=== PATIENT | female | born 1975 | race Hispanic/Latino ===

== ENCOUNTER → 2018-10-24 | Outpatient (CLI) | payer OTHER ==
[~2018-10-24] MED LIST: ONDA4TAB4 PO
[2018-10-24 08:40] LABS: BASOPHILS % (AUTO) 0.9 % (0.0-5.0); EOSINOPHILS % (AUTO) 1.1 % (0.0-8.0); HEMATOCRIT 33.9 % (36-48); LYMPHOCYTES % (AUTO) 40.3 % (21.0-51.0); MEAN CORPUSCULAR HEMOGLOBIN 24.9 pg (27.0-33.0); MEAN CORPUSCULAR HGB CONC 32.3 g/dL (32.0-36.0); MEAN CORPUSCULAR VOLUME 77.1 fL (79-99); MONOCYTES % (AUTO) 6.8 % (3.0-13.0); NEUTROPHILS % (AUTO) 50.9 % (40.0-77.0); PLATELET COUNT (AUTO) 333 K/uL (130-400); RED CELL DISTRIBUTION WIDTH 15.5 % (11.0-15.5)
[2018-10-24 09:01] LABS: ALBUMIN 3.3 g/dL (3.5-5.0); BILIRUBIN,TOTAL 0.4 mg/dL (0.2-1.0); CREATININE 0.8 mg/dL (0.5-1.5); POTASSIUM 4.3 mmol/L (3.5-5.1)
== END | disposition home or self-care (01) ==
LOC: LAB 08:21
PROVIDERS: ATTEND Dermatology
DX: Z79.899 Other long term (current) drug therapy (principal)
CPT/HCPCS: 36415; 80053; 85025; 86038

== ENCOUNTER → 2020-05-23 | Outpatient (CLI) | payer OTHER ==
[2020-05-23 09:42] LABS: BASOPHILS % (AUTO) 1.1 % (0.0-5.0); EOSINOPHILS % (AUTO) 0.9 % (0.0-8.0); HEMATOCRIT 38.9 % (36-48); LYMPHOCYTES % (AUTO) 38.9 % (21.0-51.0); MEAN CORPUSCULAR HEMOGLOBIN 25.6 pg (27.0-33.0); MEAN CORPUSCULAR HGB CONC 31.9 g/dL (32.0-36.0); MEAN CORPUSCULAR VOLUME 80.2 fL (79-99); MONOCYTES % (AUTO) 7.3 % (3.0-13.0); NEUTROPHILS % (AUTO) 51.6 % (40.0-77.0); PLATELET COUNT (AUTO) 337 K/uL (130-400); RED BLOOD CELL COUNT(AUTO) 4.85 MIL/uL (4.00-5.50); WHITE BLOOD COUNT (AUTO) 6.4 K/uL (4.8-10.8)
[2020-05-23 09:50] LABS: APPEARANCE,URINE Clear (CLEAR); BILIRUBIN,URINE Negative (NEGATIVE); COLOR,URINE Yellow (YELLOW); GLUCOSE, URINE (UA) Negative (NEGATIVE); KETONES,URINE Negative (NEGATIVE); LEUKOCYTE ESTERASE ,URINE Trace (NEGATIVE); NITRATE,URINE Negative (NEGATIVE); OCCULT BLOOD,URINE Negative (NEGATIVE); PH,URINE 5.5 (5.0-8.0); PROTEIN,URINE Negative (NEGATIVE); UROBILINOGEN,URINE 0.2 mg/dL (0.2-1.0)
[2020-05-23 09:50] LABS: HEMOGLOBIN A1C 5.6 % (4.0-6.0)
[2020-05-23 09:52] LABS: BACTERIA,URINE Rare /HPF (None Seen); RBC,URINE 0-1 /HPF (0-1); SQUAMOUS EPITHELIAL CELL,UR Few /HPF (0-2); WBC,URINE 0-1 /HPF (0-1)
[2020-05-23 09:58] LABS: % IRON SATURATION 10.3 % (22-44)
[2020-05-23 10:06] LABS: ALBUMIN 3.9 g/dL (3.5-5.0); BILIRUBIN,TOTAL 0.4 mg/dL (0.2-1.0); CREATININE 0.7 mg/dL (0.5-1.5); POTASSIUM 3.7 mmol/L (3.5-5.1); THYROID STIMULATING HORMONE 2.06 uIU/mL (0.36-3.74); TOTAL PROTEIN, SERUM 7.5 g/dL (6.0-8.3)
[2020-05-23 10:47] LABS: ERYTHROCYTE SEDIMENTATION RATE 6 MM/HR (0-20)
== END | disposition home or self-care (01) ==
LOC: LAB 05-22 15:52
PROVIDERS: ATTEND Nurse Practitioner Family
DX: D50.9 Iron deficiency anemia, unspecified (principal); E55.9 Vitamin D deficiency, unspecified; R53.82 Chronic fatigue, unspecified; R73.09 Other abnormal glucose
CPT/HCPCS: 36415; 80053; 80061; 81001; 82306; 82533; 82627; 82670; 82677; 82679; 83001; 83002; 83036; 83540; 83550; 83789; 84144; 84255; 84270; 84402; 84403; 84439; 84443; 84479; 84481; 84482; 84630; 85025; 85651; 86376; 86800

== ENCOUNTER 2020-08-10 15:19 | Emergency (ER) | payer OTHER ==
[2020-08-10 15:45] LABS: APPEARANCE,URINE Cloudy (CLEAR); BILIRUBIN,URINE Negative (NEGATIVE); COLOR,URINE Yellow (YELLOW); GLUCOSE, URINE (UA) Negative (NEGATIVE); KETONES,URINE Trace mg/dL (NEGATIVE); LEUKOCYTE ESTERASE ,URINE Small (NEGATIVE); NITRATE,URINE Negative (NEGATIVE); OCCULT BLOOD,URINE Negative (NEGATIVE); PROTEIN,URINE Negative (NEGATIVE)
[2020-08-10 15:47] LABS: HCG,QUAL RESULT NEGATIVE (NEGATIVE)
[2020-08-10 16:01] LABS: RBC,URINE 0-1 /HPF (0-1)
[2020-08-10 16:02] LABS: BACTERIA,URINE Few /HPF (None Seen); MUCUS,URINE Few LPF (None Seen); SQUAMOUS EPITHELIAL CELL,UR Moderate /HPF (0-2)
[2020-08-10] MEDS ORDERED: ORPHENADRINE CITRATE 30 MG/ML ML ONE (17:27)
[2020-08-10] MEDS ORDERED: DEXAMETHASONE SOD PHOSPHATE 4 MG/ML 1ML VIAL ONE (17:27)
[2020-08-10] MEDS ORDERED: KETOROLAC TROMETHAMINE 30MG/ML ONE (17:27)
[2020-08-10] MEDS ORDERED: FENTANYL CITRATE PF 50 MCG/1 ML 2ML VIAL ONE (17:28)
== END 2020-08-10 18:54 | disposition home or self-care (01) ==
LOC: EDH 15:19
DX: M54.41 Lumbago with sciatica, right side (principal); Z88.2 Allergy status to sulfonamides; Z90.49 Acquired absence of other specified parts of digestive tract
CPT/HCPCS: 81001; 81025; 96374; 96375; 99284; J1100; J1885; J2360; J3010

== ENCOUNTER 2020-09-17 08:41 | Day surgery (SDC) | payer OTHER ==
[2020-09-12 09:07] LABS: INR 1.01 (0.85-1.15)
[2020-09-12 09:08] LABS: PARTIAL THROMBOPLASTIN TIME 29.1 SEC (26.3-35.5)
[2020-09-17] VITALS (17 sets, daily range): BP systolic 125–147; BP diastolic 72–86
[~2020-09-17] VITALS: Ht 162.6 cm; Wt 62.2 kg
[2020-09-17] MEDS: CEFAZOLIN SODIUM 1 GM VIAL IVP ONE ×2 (07:57→11:00)
[~2020-09-17 08:41] MED LIST changes: +LACTATED RINGERS 1000ML 1,000 ML IV ONE
[2020-09-17] MEDS ORDERED: MAGN500C15 PO (09:06)
[2020-09-17] MEDS ORDERED: VITAMIN D PO (09:06)
[2020-09-17] MEDS ORDERED: OXYMETAZOLINE HCL SPRAY 15 ML BOTTLE ONE ×2 (09:36→12:24)
[2020-09-17] MEDS ORDERED: LIDOCAINE 1%-EPI 1:100,000 20 ML VIAL IJ ONE (09:36)
[2020-09-17] MEDS ORDERED: GENTAMICIN SULFATE 80 MG/2 ML VIAL ONE (09:37)
[2020-09-17] MEDS ORDERED: CEFAZOLIN SODIUM 1 GM VIAL ONE ×2 (09:37→14:43)
[2020-09-17] MEDS ORDERED: SUCCINYLCHOLINE CHLORIDE 20 MG/ML 10 ML VIAL ONE (10:08)
[2020-09-17] MEDS ORDERED: PROPOFOL 10 MG/ML 20ML VIAL IV ONE (10:08)
[2020-09-17] MEDS ORDERED: LIDOCAINE PF 2% 5ML ABBOJECT ONE (10:08)
[2020-09-17] MEDS ORDERED: FENTANYL CITRATE PF 50 MCG/1 ML 2ML VIAL ONE ×4 (10:09→16:21)
[2020-09-17] MEDS ORDERED: LIDOCAINE HCL MPF 1% 5ML VIAL ONE (10:09)
[2020-09-17] MEDS ORDERED: ROCURONIUM 10MG/1ML SYR 10 MG/ML ML ONE ×2 (10:09→15:39)
[2020-09-17] MEDS ORDERED: BACITRACIN 28.4 GM OINT TP ONE (10:45)
[2020-09-17] MEDS ORDERED: BUPIVACAINE/EPI/PF 0.5% 30ML VIAL IJ ONE (11:32)
[2020-09-17] MEDS ORDERED: KETOROLAC TROMETHAMINE 30MG/ML ONE (13:54)
[2020-09-17] MEDS ORDERED: MEPERIDINE-PF 25 MG/ML SYG ONE (14:57)
[2020-09-17] MEDS ORDERED: ONDANSETRON HCL 4 MG/2 ML VIAL ONE ×3 (14:58→17:21)
[2020-09-17] MEDS ORDERED: NA BORATE/BORIC AC/H2O/NACL 120 ML OPHTH IRRIG SOLN ONE (16:09)
[2020-09-17] MEDS ORDERED: NEOSTIGMINE 5MG/5ML SYR IV ONE (16:21)
[2020-09-17] MEDS ORDERED: METOCLOPRAMIDE 10 MG/2 ML VIAL ONE (16:49)
== END 2020-09-17 18:45 | disposition home or self-care (01) ==
LOC: DAH 08:41
PROVIDERS: ATTEND Plastic Surgery
DX: J34.89 Other specified disorders of nose and nasal sinuses (principal); Z20.822 Contact with and (suspected) exposure to COVID-19; Q00-Q99 Congenital malformations, deformations and chromosomal abnormalities; Q30.9 Congenital malformation of nose, unspecified; K21.9 Gastro-esophageal reflux disease without esophagitis; Z79.01 Long term (current) use of anticoagulants; Z90.49 Acquired absence of other specified parts of digestive tract; Z98.890 Other specified postprocedural states; Z82.49 Family history of ischemic heart disease and other diseases of the circulatory system; Z83.3 Family history of diabetes mellitus; Z79.899 Other long term (current) drug therapy
CPT/HCPCS: 30462; 30930; 36415; 40720; 64400; 84703; 85610; 85730; A4215; A4216; A4221; A4222; A4223 ×2; A4649 ×3; A4663; A6260; C9803; J0330; J0690 ×3; J1580; J1885; J2175; J2405 ×3; J2704; J2710; J2765; J3010 ×4; J3490 ×3; J7030; J7120; U0003; J2001

== ENCOUNTER → 2020-12-01 | Outpatient (CLI) | payer OTHER ==
[~2020-12-01] MED LIST changes: -LACTATED RINGERS 1000ML 1,000 ML IV ONE; +MAGN500C15 PO; -ONDA4TAB4 PO; +VITAMIN D PO
== END | disposition home or self-care (01) ==
LOC: LAB 09:26
PROVIDERS: ATTEND Internal Medicine Cardiovascular Disease
DX: Z20.822 Contact with and (suspected) exposure to COVID-19 (principal)
CPT/HCPCS: C9803; U0003

== ENCOUNTER → 2021-03-02 | Outpatient (CLI) | payer OTHER | END | disposition home or self-care (01) | LOC: RAH 16:41 | PROVIDERS: ATTEND Nurse Practitioner Family | DX: Z12.31 Encounter for screening mammogram for malignant neoplasm of breast (principal); Z00.01 Encounter for general adult medical examination with abnormal findings | CPT/HCPCS: 77067 ==

== ENCOUNTER 2021-04-02 17:41 | Emergency (ER) | payer OTHER ==
[~2021-04-02] VITALS: Ht 162.6 cm; Wt 64.4 kg
[2021-04-02 17:43] VITALS: BP 145/74
[2021-04-02] MEDS ORDERED: NAPR500T6 PO (18:26)
[2021-04-02] MEDS ORDERED: CYCL10 PO (18:26)
[2021-04-02] MEDS ORDERED: DIAZEPAM 5 MG TABLET PO ONE (18:30)
[2021-04-02] MEDS ORDERED: KETOROLAC 30MG VIAL (30MG/ML) IM ONE (18:30)
[2021-04-02] MEDS ORDERED: DEXAMETHASONE SOD PHOSPHATE 4 MG/ML 1ML VIAL IM SCH (18:30)
== END 2021-04-02 19:20 | disposition home or self-care (01) ==
LOC: EDH 17:41
DX: M54.41 Lumbago with sciatica, right side (principal); Z88.2 Allergy status to sulfonamides; Z79.1 Long term (current) use of non-steroidal anti-inflammatories (NSAID); Z79.52 Long term (current) use of systemic steroids
CPT/HCPCS: 96372 ×2; 99284; J1100; J1885

== ENCOUNTER → 2021-04-24 | Outpatient (CLI) | payer OTHER ==
[~2021-04-24] MED LIST changes: +CYCL10 PO; +IOHEXOL 350 MG/ML 100ML INFUS..BTL IV ONE; +NAPR500T6 PO
== END | disposition home or self-care (01) ==
LOC: RAH 15:19
PROVIDERS: ATTEND Internal Medicine Hematology & Oncology
DX: C50.811 Malignant neoplasm of overlapping sites of right female breast (principal)
CPT/HCPCS: 71270; 74170; Q9967

== ENCOUNTER 2021-05-20 07:14 | Day surgery (SDC) | payer OTHER ==
[2021-05-19 09:35] LABS: EOSINOPHILS % (AUTO) 1.5 % (0.0-8.0); HEMATOCRIT 35.8 % (36-48); LYMPHOCYTES % (AUTO) 38.9 % (21.0-51.0); MEAN CORPUSCULAR HEMOGLOBIN 22.4 pg (27.0-33.0); MEAN CORPUSCULAR HGB CONC 30.7 g/dL (32.0-36.0); MEAN CORPUSCULAR VOLUME 73.1 fL (79-99); MONOCYTES % (AUTO) 6.9 % (3.0-13.0); NEUTROPHILS % (AUTO) 51.4 % (40.0-77.0); PLATELET COUNT (AUTO) 391 K/uL (130-400); RED CELL DISTRIBUTION WIDTH 18.8 % (11.0-15.5); WHITE BLOOD COUNT (AUTO) 6.1 K/uL (4.8-10.8)
[2021-05-19 09:49] LABS: ALBUMIN 3.8 g/dL (3.5-5.0); BILIRUBIN,TOTAL 0.3 mg/dL (0.2-1.0); CREATININE 0.7 mg/dL (0.5-1.5); POTASSIUM 4.3 mmol/L (3.5-5.1); TOTAL PROTEIN, SERUM 7.6 g/dL (6.0-8.3)
[2021-05-19 09:53] LABS: PROTHROMBIN TIME 10.9 SEC (9.6-11.6)
[2021-05-19 09:54] LABS: PARTIAL THROMBOPLASTIN TIME 29.6 SEC (26.3-35.5)
[2021-05-19 15:35] VITALS: BP 139/85
[~2021-05-20] VITALS: Ht 162.6 cm; Wt 63.5 kg
[2021-05-20] VITALS (18 sets, daily range): BP systolic 16–145; BP diastolic 71–87
[~2021-05-20 07:14] MED LIST changes: +CYCL-309 PO; -CYCL10 PO; +INTEGRA PO; -IOHEXOL 350 MG/ML 100ML INFUS..BTL IV ONE; +LIDOCAINE/PRILOCAINE CREAM 5GM TUBE TP ONE; -MAGN500C15 PO; +NAPR-1023 PO; -NAPR500T6 PO; -VITAMIN D PO
[2021-05-20] MEDS ORDERED: LACTATED RINGERS 1000ML 1,000 ML IV ONE (07:18)
[2021-05-20] MEDS ORDERED: PROPOFOL 10 MG/ML 20ML VIAL IV ONE (07:21)
[2021-05-20] MEDS ORDERED: ROCURONIUM 10MG/1ML SYR 10 MG/ML ML ONE (07:21)
[2021-05-20] MEDS ORDERED: SUCCINYLCHOLINE CHLORIDE 20 MG/ML 10 ML VIAL ONE (07:21)
[2021-05-20] MEDS ORDERED: LIDOCAINE PF 100MG/5ML (2%) SYRINGE 5ML ONE ×2 (07:21→12:17)
[2021-05-20] MEDS ORDERED: FENTANYL CITRATE PF 50 MCG/1 ML 2ML VIAL ONE ×3 (07:23→11:05)
[2021-05-20] MEDS ORDERED: METHYLENE BLUE 5 MG/ML AMP ONE (07:47)
[2021-05-20] MEDS ORDERED: CEFAZOLIN SODIUM 1 GM VIAL ONE (07:47)
[2021-05-20] MEDS ORDERED: GENTAMICIN SULFATE 80 MG/2 ML VIAL ONE (07:47)
[2021-05-20] MEDS: CEFAZOLIN SODIUM 1 GM VIAL IVP ONE ×2 (08:07→08:58)
[2021-05-20] MEDS ORDERED: MIDAZOLAM HCL 1 MG/ML 2ML VIAL ONE (08:24)
[2021-05-20] MEDS ORDERED: BUPIVACAINE/PF 0.25% 30ML VIAL IJ ONE (11:30)
[2021-05-20] MEDS ORDERED: BUPIVACAINE/PF 0.5% 30ML VIAL ONE (11:31)
[2021-05-20] MEDS ORDERED: BUPIVACAINE/EPI/PF 0.5% 30ML VIAL IJ ONE (11:35)
[2021-05-20] MEDS ORDERED: NEOSTIGMINE 5MG/5ML SYR IV ONE (11:45)
[2021-05-20] MEDS ORDERED: GLYCOPYRROLATE 1 MG/5 ML SYRINGE ONE (11:45)
[2021-05-20] MEDS ORDERED: DEXAMETHASONE SOD PHOSPHATE 4 MG/ML 1ML VIAL ONE (12:19)
[2021-05-20] MEDS ORDERED: ONDANSETRON 4MG INJ ONE ×2 (12:19→13:46)
[2021-05-20] MEDS ORDERED: KETOROLAC 30MG VIAL (30MG/ML) ONE (12:19)
[2021-05-20] MEDS ORDERED: MEPERIDINE-PF 25 MG/ML SYG ONE (12:39)
[2021-06-03] MEDS ORDERED: TRAM50TA4 PO (13:23)
== END 2021-05-20 15:46 | disposition home or self-care (01) ==
LOC: DAH 07:14
PROVIDERS: ATTEND Student in an Organized Health Care Education/Training Program
DX: C50.111 Malignant neoplasm of central portion of right female breast (principal); Z20.822 Contact with and (suspected) exposure to COVID-19; E78.5 Hyperlipidemia, unspecified; Z79.899 Other long term (current) drug therapy; Z79.01 Long term (current) use of anticoagulants; Z90.49 Acquired absence of other specified parts of digestive tract; Z98.890 Other specified postprocedural states; Z82.49 Family history of ischemic heart disease and other diseases of the circulatory system; Z83.3 Family history of diabetes mellitus
CPT/HCPCS: 19303; 36415; 38525; 71045; 78195; 80053; 85025; 85610; 85730; 87635; 93005; A4215; A4221; A4222; A4223; A4344; A4600; A4649 ×2; A4663; A4930; A6260; A9272; A9541; C1762; C1789; C9803; J0330; J0690 ×2; J1100; J1580; J1885; J2001 ×2; J2175; J2250; J2405 ×2; J2704; J2710; J3010 ×3; J3490 ×4; J7030; J7120; Q9968

== ENCOUNTER 2021-06-08 07:49 | Day surgery (SDC) | payer OTHER ==
[2021-06-03 11:20] VITALS: BP 138/76
[2021-06-03 11:58] LABS: BASOPHILS % (AUTO) 1.2 % (0.0-5.0); HEMATOCRIT 32.7 % (36-48); LYMPHOCYTES % (AUTO) 27.7 % (21.0-51.0); MEAN CORPUSCULAR HEMOGLOBIN 22.2 pg (27.0-33.0); MEAN CORPUSCULAR HGB CONC 30.6 g/dL (32.0-36.0); MEAN CORPUSCULAR VOLUME 72.7 fL (79-99); MONOCYTES % (AUTO) 6.2 % (3.0-13.0); NEUTROPHILS % (AUTO) 61.5 % (40.0-77.0); PLATELET COUNT (AUTO) 416 K/uL (130-400); RED CELL DISTRIBUTION WIDTH 17.6 % (11.0-15.5); WHITE BLOOD COUNT (AUTO) 10.4 K/uL (4.8-10.8)
[2021-06-08] VITALS (16 sets, daily range): BP systolic 113–138; BP diastolic 63–86
[~2021-06-08] VITALS: Ht 162.6 cm; Wt 64.2 kg
[~2021-06-08 07:49] MED LIST changes: -CYCL-309 PO; -LIDOCAINE/PRILOCAINE CREAM 5GM TUBE TP ONE; -NAPR-1023 PO; +TRAM50TA4 PO
[2021-06-08] MEDS ORDERED: LACTATED RINGERS 1000ML 1,000 ML IV ONE (08:12)
[2021-06-08] MEDS ORDERED: SCOPOLAMINE HYDROBROMIDE 1 EACH ADH..PATCH TD ONE (08:16)
[2021-06-08] MEDS ORDERED: LIDOCAINE PF 100MG/5ML (2%) SYRINGE 5ML ONE (08:21)
[2021-06-08] MEDS ORDERED: MIDAZOLAM HCL 1 MG/ML 2ML VIAL ONE (08:22)
[2021-06-08] MEDS ORDERED: PROPOFOL 10 MG/ML 20ML VIAL IV ONE (08:22)
[2021-06-08] MEDS ORDERED: FENTANYL CITRATE PF 50 MCG/1 ML 2ML VIAL ONE ×2 (08:22→09:45)
[2021-06-08] MEDS ORDERED: BUPIVACAINE/PF 0.25% 10ML VIAL IJ ONE (08:26)
[2021-06-08] MEDS ORDERED: CEFAZOLIN SODIUM 1 GM VIAL ONE (08:53)
[2021-06-08] MEDS ORDERED: CEFAZOLIN SODIUM 1 GM VIAL IVP SCH (09:30)
[2021-06-19] MEDS ORDERED: NAPR-1023 PO (10:33)
[2021-06-19] MEDS ORDERED: PROM12.513 PO (10:33)
[2021-06-19] MEDS ORDERED: IRON1CAP32 PO (10:33)
[2021-06-19] MEDS ORDERED: META-25 PO (10:33)
== END 2021-06-08 11:40 | disposition home or self-care (01) ==
LOC: DAH 07:49
PROVIDERS: ATTEND Student in an Organized Health Care Education/Training Program
DX: C50.911 Malignant neoplasm of unspecified site of right female breast (principal); Z20.822 Contact with and (suspected) exposure to COVID-19; E78.5 Hyperlipidemia, unspecified; Z88.1 Allergy status to other antibiotic agents; Z90.49 Acquired absence of other specified parts of digestive tract; Z98.890 Other specified postprocedural states; Z83.3 Family history of diabetes mellitus; Z82.49 Family history of ischemic heart disease and other diseases of the circulatory system
CPT/HCPCS: 36415; 36561; 77001; 85025; 87635; A4215; A4216; A4221; A4222; A4223 ×3; A4606 ×2; A4663; A6207; A6260; A6402; C1788; C9803; G0168; J0690; J1644; J2001; J2250; J2704; J3010 ×2; J3490; J7120; 77002

== ENCOUNTER 2021-06-22 10:56 | Day surgery (SDC) | payer OTHER ==
[2021-06-18 09:27] LABS: BASOPHILS % (AUTO) 1.1 % (0.0-5.0); EOSINOPHILS % (AUTO) 6.4 % (0.0-8.0); HEMATOCRIT 31.9 % (36-48); LYMPHOCYTES % (AUTO) 30.2 % (21.0-51.0); MEAN CORPUSCULAR HEMOGLOBIN 22.4 pg (27.0-33.0); MEAN CORPUSCULAR VOLUME 72.2 fL (79-99); MONOCYTES % (AUTO) 6.2 % (3.0-13.0); NEUTROPHILS % (AUTO) 55.8 % (40.0-77.0); PLATELET COUNT (AUTO) 414 K/uL (130-400); RED BLOOD CELL COUNT(AUTO) 4.42 MIL/uL (4.00-5.50); RED CELL DISTRIBUTION WIDTH 16.8 % (11.0-15.5); WHITE BLOOD COUNT (AUTO) 6.6 K/uL (4.8-10.8)
[2021-06-18 09:45] LABS: ALBUMIN 3.5 g/dL (3.5-5.0); BILIRUBIN,TOTAL 0.3 mg/dL (0.2-1.0); CREATININE 0.7 mg/dL (0.5-1.5); POTASSIUM 3.9 mmol/L (3.5-5.1); TOTAL PROTEIN, SERUM 7.5 g/dL (6.0-8.3)
[2021-06-19 09:35] VITALS: BP 137/77
[~2021-06-22] VITALS: Ht 162.6 cm; Wt 63.3 kg
[2021-06-22] VITALS (17 sets, daily range): BP systolic 113–134; BP diastolic 58–83
[~2021-06-22 10:56] MED LIST changes: -INTEGRA PO; +IRON1CAP32 PO; +META-25 PO; +NAPR-1023 PO; +PROM12.513 PO
[2021-06-22] MEDS ORDERED: LACTATED RINGERS 1000ML 1,000 ML IV ONE (11:25)
[2021-06-22] MEDS ORDERED: DEXAMETHASONE SOD PHOSPHATE 10MG/ML 1ML VIAL ONE (11:54)
[2021-06-22] MEDS ORDERED: LIDOCAINE PF 100MG/5ML (2%) SYRINGE 5ML ONE (11:54)
[2021-06-22] MEDS ORDERED: MIDAZOLAM HCL 1 MG/ML 2ML VIAL ONE (11:54)
[2021-06-22] MEDS ORDERED: SUCCINYLCHOLINE CHLORIDE 20 MG/ML 10 ML VIAL ONE (11:54)
[2021-06-22] MEDS ORDERED: PROPOFOL 10 MG/ML 20ML VIAL IV ONE (11:55)
[2021-06-22] MEDS ORDERED: GLYCOPYRROLATE 1 MG/5 ML SYRINGE ONE (11:55)
[2021-06-22] MEDS ORDERED: ROCURONIUM 10MG/1ML SYR 10 MG/ML ML ONE (11:55)
[2021-06-22] MEDS ORDERED: ONDANSETRON 4MG INJ ONE (11:55)
[2021-06-22] MEDS ORDERED: FENTANYL CITRATE PF 50 MCG/1 ML 2ML VIAL ONE ×2 (11:55→13:04)
[2021-06-22] MEDS ORDERED: NEOSTIGMINE 5MG/5ML SYR IV ONE (11:55)
[2021-06-22] MEDS ORDERED: METOCLOPRAMIDE 10 MG/2 ML VIAL ONE (12:02)
[2021-06-22] MEDS ORDERED: CEFAZOLIN SODIUM 1 GM VIAL ONE (12:19)
[2021-06-22] MEDS ORDERED: VANCOMYCIN 1G VIAL ONE (12:25)
[2021-06-22] MEDS ORDERED: LIDOCAINE HCL 1% 20 ML VIAL ONE (12:25)
[2021-06-22] MEDS ORDERED: GENTAMICIN SULFATE 80 MG/2 ML VIAL ONE (12:25)
[2021-06-22] MEDS ORDERED: LIDOCAINE 1%-EPI 1:100,000 20 ML VIAL IJ ONE (13:05)
[2021-06-22] MEDS ORDERED: PHENYLEPHRINE HCL 10 MG/ML 1ML VIAL IV ONE (13:14)
[2021-06-22] MEDS ORDERED: BUPIVACAINE/EPI/PF 0.5% 30ML VIAL IJ ONE (13:24)
[2021-06-22] MEDS ORDERED: MEPERIDINE-PF 25 MG/ML SYG ONE (13:48)
== END 2021-06-22 16:10 | disposition home or self-care (01) ==
LOC: DAH 10:56
PROVIDERS: ATTEND Plastic Surgery
DX: S21.001A Unspecified open wound of right breast, initial encounter (principal); Z90.10 Acquired absence of unspecified breast and nipple; C50.111 Malignant neoplasm of central portion of right female breast; X58.XXXA Exposure to other specified factors, initial encounter; Y93.89 Activity, other specified; Y92.89 Other specified places as the place of occurrence of the external cause; Y99.8 Other external cause status
CPT/HCPCS: 14001; 15002; 36415; 80053; 85025; 87070; 87076; 87077 ×2; 87186 ×2; 87205; 87635; A4215; A4221; A4222; A4223; A4510; A4600; A4606; A4649; A4663; A6223; A6260; C1763; C9803; J0330; J0690; J1100; J1580; J2001; J2175; J2250; J2370; J2405; J2704; J2710; J2765; J3010 ×2; J3370; J3490 ×3; J7120

== ENCOUNTER → 2021-12-31 | Outpatient (CLI) | payer OTHER | END | disposition home or self-care (01) | LOC: LAB 08:56 | PROVIDERS: ATTEND Hospitalist | DX: Z20.822 Contact with and (suspected) exposure to COVID-19 (principal) | CPT/HCPCS: 87635; C9803 ==

== ENCOUNTER → 2022-03-05 | Outpatient (CLI) | payer OTHER | END | disposition home or self-care (01) | LOC: RAH 14:53 | PROVIDERS: ATTEND Internal Medicine Hematology & Oncology | DX: C50.811 Malignant neoplasm of overlapping sites of right female breast (principal); Z85.3 Personal history of malignant neoplasm of breast | CPT/HCPCS: 77065 ==

== ENCOUNTER 2022-05-19 07:06 | Day surgery (SDC) | payer OTHER ==
[2022-05-17] MEDS: CEFAZOLIN SODIUM 1 GM VIAL IVPB SCH (07:00)
[2022-05-17 09:42] LABS: BASOPHILS % (AUTO) 0.8 % (0.0-5.0); EOSINOPHILS % (AUTO) 2.7 % (0.0-8.0); HEMATOCRIT 37.3 % (36-48); LYMPHOCYTES % (AUTO) 37.5 % (21.0-51.0); MEAN CORPUSCULAR HEMOGLOBIN 27.5 pg (27.0-33.0); MEAN CORPUSCULAR VOLUME 83.3 fL (79-99); MONOCYTES % (AUTO) 6.6 % (3.0-13.0); NEUTROPHILS % (AUTO) 52.1 % (40.0-77.0); PLATELET COUNT (AUTO) 262 K/uL (130-400); RED BLOOD CELL COUNT(AUTO) 4.48 MIL/uL (4.00-5.50); RED CELL DISTRIBUTION WIDTH 14.3 % (11.0-15.5)
[2022-05-17 10:01] LABS: ALBUMIN 3.4 g/dL (3.5-5.0); CREATININE 0.6 mg/dL (0.5-1.5); POTASSIUM 4.2 mmol/L (3.5-5.1)
[2022-05-17 10:26] LABS: INR 0.96 (0.85-1.15); PROTHROMBIN TIME 10.5 SEC (9.6-11.6)
[2022-05-17 10:27] LABS: PARTIAL THROMBOPLASTIN TIME 28.2 SEC (26.3-35.5)
[2022-05-18 10:23] VITALS: BP 143/79
[2022-05-19] VITALS (17 sets, daily range): BP systolic 114–146; BP diastolic 67–89
[~2022-05-19] VITALS: Ht 162.6 cm; Wt 63.5 kg
[~2022-05-19 07:06] MED LIST changes: +CEFAZOLIN SODIUM 1 GM VIAL ONE; +GENTAMICIN SULFATE 80 MG/2 ML VIAL ONE; -IRON1CAP32 PO; -META-25 PO; +METHYLENE BLUE 5 MG/ML AMP ONE; -NAPR-1023 PO; -PROM12.513 PO; +TAMO20TA4 PO; -TRAM50TA4 PO
[2022-05-19] MEDS ORDERED: MIDAZOLAM HCL 1 MG/ML 2ML VIAL ONE (07:17)
[2022-05-19] MEDS ORDERED: PHENYLEPHRINE HCL 10 MG/ML 1ML VIAL IV ONE (07:17)
[2022-05-19] MEDS ORDERED: ONDANSETRON 4MG INJ ONE ×2 (07:17→10:21)
[2022-05-19] MEDS ORDERED: PROPOFOL 10 MG/ML 20ML VIAL IV ONE (07:18)
[2022-05-19] MEDS ORDERED: KETOROLAC 30MG VIAL (30MG/ML) ONE (07:18)
[2022-05-19] MEDS ORDERED: ROCURONIUM 10MG/1ML SYR 10 MG/ML ML ONE (07:18)
[2022-05-19] MEDS ORDERED: LACTATED RINGERS 1000ML 1,000 ML IV ONE (07:19)
[2022-05-19] MEDS ORDERED: FENTANYL CITRATE PF 50 MCG/1 ML 2ML VIAL ONE (07:19)
[2022-05-19] MEDS ORDERED: LIDOCAINE 1%-EPI 1:100,000 20 ML VIAL IJ SCH (07:30)
[2022-05-19] MEDS: CEFAZOLIN SODIUM 1 GM VIAL IVPB SCH (08:20)
[2022-05-19] MEDS ORDERED: DEXAMETHASONE SOD PHOSPHATE 4 MG/ML 1ML VIAL ONE (09:10)
[2022-05-19] MEDS ORDERED: BUPIVACAINE LIPOSOME/PF 266 MG/20 ML ML IV SCH (09:30)
[2022-05-19] MEDS ORDERED: MEPERIDINE-PF 25 MG/ML SYG ONE (10:21)
== END 2022-05-19 11:43 | disposition home or self-care (01) ==
LOC: DAH 07:06
PROVIDERS: ATTEND Plastic Surgery
DX: N64.89 Other specified disorders of breast (principal); Z20.822 Contact with and (suspected) exposure to COVID-19; Z79.01 Long term (current) use of anticoagulants; Z79.899 Other long term (current) drug therapy; Z90.11 Acquired absence of right breast and nipple; Z88.2 Allergy status to sulfonamides; Z82.49 Family history of ischemic heart disease and other diseases of the circulatory system; Z83.3 Family history of diabetes mellitus; Z98.890 Other specified postprocedural states; Z90.49 Acquired absence of other specified parts of digestive tract; Z90.10 Acquired absence of unspecified breast and nipple; Z85.3 Personal history of malignant neoplasm of breast
CPT/HCPCS: 80053; 84703; 85025; 85610; 85730; 87426; 36415; 71045; 93005; 19357; A4663; J7030; J7120 ×2; J3010; J0690 ×3; J1580 ×4; J2250; J2704; J2405 ×2; Q9968; J1885; J2175; J2370; C9290; A6446; A4649; G0168; C1789; A4215; A4223; A4222; A4221; A4600; J1100; J3490

== ENCOUNTER → 2022-09-23 | Outpatient (CLI) | payer OTHER ==
[~2022-09-23] MED LIST changes: -CEFAZOLIN SODIUM 1 GM VIAL ONE; +ESOM40CA PO; -GENTAMICIN SULFATE 80 MG/2 ML VIAL ONE; +IOHEXOL 350 MG/ML 100ML INFUS..BTL IV ONE; -METHYLENE BLUE 5 MG/ML AMP ONE; +ONDA4TAB10 PO
== END | disposition home or self-care (01) ==
LOC: RAH 10:06
PROVIDERS: ATTEND Internal Medicine Hematology & Oncology
DX: C50.811 Malignant neoplasm of overlapping sites of right female breast (principal); Z90.49 Acquired absence of other specified parts of digestive tract
CPT/HCPCS: 74178; Q9967

== ENCOUNTER 2022-09-24 17:02 | Emergency (ER) | payer OTHER ==
[~2022-09-24] VITALS: Ht 162.6 cm; Wt 68.0 kg
[~2022-09-24 17:02] MED LIST changes: -ESOM40CA PO; -IOHEXOL 350 MG/ML 100ML INFUS..BTL IV ONE; -ONDA4TAB10 PO
[2022-09-24] MEDS ORDERED: LACTATED RINGERS 1000ML 1,000 ML IV ONE (17:30)
[2022-09-24] MEDS ORDERED: ONDANSETRON 4MG INJ IVP ONE (17:30)
[2022-09-24 17:49] LABS: BASOPHILS % (AUTO) 0.7 % (0.0-5.0); EOSINOPHILS % (AUTO) 2.5 % (0.0-8.0); HEMATOCRIT 38.8 % (36-48); LYMPHOCYTES % (AUTO) 42.4 % (21.0-51.0); MEAN CORPUSCULAR HEMOGLOBIN 28.8 pg (27.0-33.0); MEAN CORPUSCULAR HGB CONC 33.8 g/dL (32.0-36.0); MEAN CORPUSCULAR VOLUME 85.3 fL (79-99); MONOCYTES % (AUTO) 7.9 % (3.0-13.0); NEUTROPHILS % (AUTO) 46.1 % (40.0-77.0); PLATELET COUNT (AUTO) 316 K/uL (130-400); RED BLOOD CELL COUNT(AUTO) 4.55 MIL/uL (4.00-5.50); RED CELL DISTRIBUTION WIDTH 13.1 % (11.0-15.5); WHITE BLOOD COUNT (AUTO) 6.7 K/uL (4.8-10.8)
[2022-09-24 17:56] LABS: CREATININE 0.7 mg/dL (0.5-1.5); POTASSIUM 3.7 mmol/L (3.5-5.1)
[2022-09-24 18:05] LABS: ALBUMIN 3.4 g/dL (3.5-5.0); TOTAL PROTEIN, SERUM 7.1 g/dL (6.0-8.3)
[2022-09-24] MEDS ORDERED: ONDA4TAB10 PO (18:11)
[2022-09-24] MEDS ORDERED: ESOM40CA PO (18:11)
[2022-09-24 18:12] LABS: APPEARANCE,URINE CLOUDY (CLEAR); BILIRUBIN,URINE NEGATIVE (NEGATIVE); COLOR,URINE LIGHT-YELLOW (YELLOW); GLUCOSE, URINE (UA) NEGATIVE (NEGATIVE); KETONES,URINE NEGATIVE (NEGATIVE); LEUKOCYTE ESTERASE ,URINE NEGATIVE Leu/uL (NEGATIVE); NITRATE,URINE NEGATIVE (NEGATIVE); OCCULT BLOOD,URINE NEGATIVE (NEGATIVE); PH,URINE 7.5 (5.0-8.0); PROTEIN,URINE NEGATIVE (NEGATIVE); UROBILINOGEN,URINE 0.2 mg/dL (0.2-1.0)
[2022-09-24 18:17] LABS: BACTERIA,URINE RARE /HPF (None Seen); MUCUS,URINE RARE LPF (None Seen); SQUAMOUS EPITHELIAL CELL,UR FEW /HPF (0-2); WBC,URINE 0-1 /HPF (0-1); YEAST,URINE BUDDING FEW /HPF (None Seen)
[2022-09-24 18:26] VITALS: BP 126/75
== END 2022-09-24 18:37 | disposition home or self-care (01) ==
LOC: EDH 17:02
DX: R10.9 Unspecified abdominal pain (principal); R11.2 Nausea with vomiting, unspecified; M54.89 Other dorsalgia; Z88.2 Allergy status to sulfonamides; Z85.3 Personal history of malignant neoplasm of breast; Z90.49 Acquired absence of other specified parts of digestive tract
CPT/HCPCS: 99283; 96374; 96361; 84484; 80053; 83690; 85025; 81001; 36415; J7120; J2405

== ENCOUNTER 2022-10-20 06:37 | Day surgery (SDC) | payer OTHER ==
[2022-10-14 09:13] LABS: BASOPHILS % (AUTO) 0.9 % (0.0-5.0); EOSINOPHILS % (AUTO) 2.8 % (0.0-8.0); HEMATOCRIT 39.8 % (36-48); LYMPHOCYTES % (AUTO) 42.9 % (21.0-51.0); MEAN CORPUSCULAR HEMOGLOBIN 28.4 pg (27.0-33.0); MEAN CORPUSCULAR HGB CONC 32.7 g/dL (32.0-36.0); MEAN CORPUSCULAR VOLUME 87.1 fL (79-99); NEUTROPHILS % (AUTO) 46.9 % (40.0-77.0); PLATELET COUNT (AUTO) 281 K/uL (130-400); RED BLOOD CELL COUNT(AUTO) 4.57 MIL/uL (4.00-5.50); RED CELL DISTRIBUTION WIDTH 12.9 % (11.0-15.5); WHITE BLOOD COUNT (AUTO) 5.7 K/uL (4.8-10.8)
[2022-10-14 09:25] VITALS: BP 133/71
[2022-10-14 09:37] LABS: ALBUMIN 3.4 g/dL (3.5-5.0); CREATININE 0.7 mg/dL (0.5-1.5); POTASSIUM 3.8 mmol/L (3.5-5.1); TOTAL PROTEIN, SERUM 7.1 g/dL (6.0-8.3)
[2022-10-14 09:54] LABS: INR 0.94 (0.85-1.15); PROTHROMBIN TIME 10.3 SEC (9.6-11.6)
[2022-10-14 09:55] LABS: PARTIAL THROMBOPLASTIN TIME 28.2 SEC (26.3-35.5)
[~2022-10-20] VITALS: Ht 162.6 cm; Wt 67.8 kg
[2022-10-20] VITALS (17 sets, daily range): BP systolic 123–133; BP diastolic 73–85
[~2022-10-20 06:37] MED LIST changes: +CEFAZOLIN SODIUM 1 GM VIAL IVPB SCH; +ONDA4TAB10 PO
[2022-10-20] MEDS ORDERED: LACTATED RINGERS 1000ML 1,000 ML IV ONE (07:16)
[2022-10-20] MEDS ORDERED: CEFAZOLIN SODIUM 1 GM VIAL ONE (07:34)
[2022-10-20] MEDS ORDERED: BUPIVACAINE/PF 0.5% 30ML VIAL ONE (07:35)
[2022-10-20] MEDS ORDERED: KETOROLAC 30MG VIAL (30MG/ML) ONE (07:35)
[2022-10-20] MEDS ORDERED: FAMOTIDINE 20MG VIAL IV ONE (07:35)
[2022-10-20] MEDS ORDERED: HYDROMORPHONE 1 MG INJ ONE (07:35)
[2022-10-20] MEDS ORDERED: LIDOCAINE 1%-EPI 1:100,000 20 ML VIAL IJ ONE (07:36)
[2022-10-20] MEDS ORDERED: GENTAMICIN SULFATE 80 MG/2 ML VIAL ONE (07:36)
[2022-10-20] MEDS ORDERED: METHYLENE BLUE 5 MG/ML AMP ONE (07:36)
[2022-10-20] MEDS ORDERED: MIDAZOLAM HCL 1 MG/ML 2ML VIAL ONE (07:40)
[2022-10-20] MEDS ORDERED: PROPOFOL 10 MG/ML 20ML VIAL IV ONE (07:40)
[2022-10-20] MEDS ORDERED: LIDOCAINE PF 100MG/5ML (2%) SYRINGE 5ML ONE (07:40)
[2022-10-20] MEDS ORDERED: ROCURONIUM 10MG/1ML SYR 10 MG/ML ML ONE (07:40)
[2022-10-20] MEDS ORDERED: GLYCOPYRROLATE 1 MG/5 ML SYRINGE ONE (07:40)
[2022-10-20] MEDS ORDERED: FENTANYL CITRATE PF 50 MCG/1 ML 5ML AMP IV ONE (07:40)
[2022-10-20] MEDS ORDERED: PHENYLEPHRINE HCL 10 MG/ML 1ML VIAL IV ONE (07:41)
[2022-10-20] MEDS ORDERED: GENTAMICIN SULFATE 80 MG/2 ML VIAL IM ONE (08:49)
[2022-10-20] MEDS ORDERED: CEFAZOLIN SODIUM 1 GM VIAL IVPB ONE (08:51)
[2022-10-20] MEDS ORDERED: LIDOCAINE 2%-EPI 1:200,000 20 ML VIAL IJ ONE (08:52)
[2022-10-20] MEDS ORDERED: ONDANSETRON 4MG INJ ONE (10:01)
[2022-10-20] MEDS ORDERED: NEOSTIGMINE 5MG/5ML SYR IV ONE (10:05)
[2022-10-20] MEDS ORDERED: FENTANYL CITRATE PF 50 MCG/1 ML 2ML VIAL ONE (11:04)
== END 2022-10-20 12:25 | disposition home or self-care (01) ==
LOC: DAH 06:37
PROVIDERS: ATTEND Plastic Surgery
DX: N64.89 Other specified disorders of breast (principal); Z20.822 Contact with and (suspected) exposure to COVID-19; K21.9 Gastro-esophageal reflux disease without esophagitis; J34.89 Other specified disorders of nose and nasal sinuses; Z85.3 Personal history of malignant neoplasm of breast; Z90.10 Acquired absence of unspecified breast and nipple; Z79.01 Long term (current) use of anticoagulants; Z79.899 Other long term (current) drug therapy; Z90.49 Acquired absence of other specified parts of digestive tract; Z98.51 Tubal ligation status; Z98.890 Other specified postprocedural states; Z88.2 Allergy status to sulfonamides; Z82.49 Family history of ischemic heart disease and other diseases of the circulatory system; Z83.3 Family history of diabetes mellitus
CPT/HCPCS: 80053; 84703; 85025; 85610; 85730; 87426; 36415; 93005; 19325; 11970; 81025; A6260; C1789; A4663; J7030; J7120 ×2; A4344; J3490 ×5; J3010 ×2; J0690 ×3; J1170; J2710; J2001; J1580 ×2; J2250; J2704; J2405; J1885; J2370; A6446; G0168; A4649 ×2; L8600; A6213; A4215; A4223; A4222; A4221; A4600; Q9968

== ENCOUNTER → 2023-04-18 | Outpatient (CLI) | payer OTHER ==
[~2023-04-18] MED LIST changes: -CEFAZOLIN SODIUM 1 GM VIAL IVPB SCH
== END | disposition home or self-care (01) ==
LOC: RAH 11:30
PROVIDERS: ATTEND Obstetrics & Gynecology
DX: R10.2 Pelvic and perineal pain (principal)
CPT/HCPCS: 76856

== ENCOUNTER → 2023-04-27 | Outpatient (CLI) | payer OTHER | END | disposition home or self-care (01) | LOC: RAH 10:00 | PROVIDERS: ATTEND Nurse Practitioner Family | DX: K76.0 Fatty (change of) liver, not elsewhere classified (principal); R10.9 Unspecified abdominal pain; Z90.49 Acquired absence of other specified parts of digestive tract | CPT/HCPCS: 76700 ==

== ENCOUNTER 2023-05-19 06:40 | Day surgery (SDC) | payer OTHER ==
[2023-05-17 16:03] VITALS: BP 168/82; PULSE 87; RESP 16
[2023-05-19] VITALS (10 sets, daily range): BP systolic 108–129; BP diastolic 64–86; PULSE 67–87; RESP 12–18
[~2023-05-19] VITALS: Ht 162.6 cm; Wt 67.7 kg
[2023-05-19] MEDS ORDERED: PROPOFOL 10 MG/ML 20ML VIAL IV ONE ×2 (08:27→08:51)
== END 2023-05-19 10:09 | disposition home or self-care (01) ==
LOC: DAH 06:40 → ENDO 06:40
PROVIDERS: ATTEND Internal Medicine Gastroenterology
DX: Z12.11 Encounter for screening for malignant neoplasm of colon (principal); R10.13 Epigastric pain; K31.89 Other diseases of stomach and duodenum; K29.50 Unspecified chronic gastritis without bleeding; I10 Essential (primary) hypertension; E78.5 Hyperlipidemia, unspecified; Z79.01 Long term (current) use of anticoagulants; Z79.899 Other long term (current) drug therapy; Z88.2 Allergy status to sulfonamides; Z90.49 Acquired absence of other specified parts of digestive tract; Z98.890 Other specified postprocedural states; Z90.11 Acquired absence of right breast and nipple; Z85.3 Personal history of malignant neoplasm of breast; Z72.89 Other problems related to lifestyle
CPT/HCPCS: 81025; 43239; 45378; J2704 ×2; A4620; A4215 ×2; A4223; A7002; A4222; A4221; A4663; A4216; J7030; A4606; G0121; J3490

== ENCOUNTER → 2023-06-17 | Outpatient (CLI) | payer OTHER ==
[2023-06-17 10:32] LABS: BASOPHILS # (AUTO) 0.05 K/uL (0.00-0.20); BASOPHILS % (AUTO) 0.7 % (0.0-5.0); EOSINOPHILS # (AUTO) 0.17 K/uL (0.00-0.70); EOSINOPHILS % (AUTO) 2.5 % (0.0-8.0); HEMATOCRIT 39.9 % (36-48); IMMATURE GRANULOCYTE ABSOLUTE 0.03 K/uL (0-1); LYMPHOCYTES # (AUTO) 3.1 K/uL (1.0-4.8); LYMPHOCYTES % (AUTO) 46.3 % (21.0-51.0); MEAN CORPUSCULAR HEMOGLOBIN 28.6 pg (27.0-33.0); MEAN CORPUSCULAR HGB CONC 32.8 g/dL (32.0-36.0); MEAN CORPUSCULAR VOLUME 87.1 fL (79-99); MONOCYTES # (AUTO) 0.4 K/uL (0.1-1.0); MONOCYTES % (AUTO) 5.5 % (3.0-13.0); NEUTROPHILS % (AUTO) 44.6 % (40.0-77.0); PLATELET COUNT (AUTO) 392 K/uL (130-400); RED BLOOD CELL COUNT(AUTO) 4.58 MIL/uL (4.00-5.50); RED CELL DISTRIBUTION WIDTH 12.8 % (11.0-15.5); WHITE BLOOD COUNT (AUTO) 6.8 K/uL (4.8-10.8)
[2023-06-17 10:42] LABS: INR < 0.93 (0.85-1.15); PROTHROMBIN TIME 10.6 SEC (9.6-11.6)
[2023-06-17 10:49] LABS: ALBUMIN 3.5 g/dL (3.5-5.0); BILIRUBIN,TOTAL 0.4 mg/dL (0.2-1.0); CREATININE 0.6 mg/dL (0.5-1.5); TOTAL PROTEIN, SERUM 7.6 g/dL (6.0-8.3)
== END | disposition home or self-care (01) ==
LOC: LAB 08:10
PROVIDERS: ATTEND Internal Medicine Gastroenterology
DX: K76.0 Fatty (change of) liver, not elsewhere classified (principal)
CPT/HCPCS: 36415; 80053; 85025; 85610

== ENCOUNTER → 2023-09-06 | Outpatient (CLI) | payer OTHER | END | disposition home or self-care (01) | LOC: RAH 14:57 | PROVIDERS: ATTEND Internal Medicine Hematology & Oncology | DX: C50.811 Malignant neoplasm of overlapping sites of right female breast (principal); A41.9 Sepsis, unspecified organism; E66.9 Obesity, unspecified; R92.322 Mammographic fibroglandular density, left breast | CPT/HCPCS: 77065 ==

== ENCOUNTER → 2023-11-09 | Outpatient (CLI) | payer OTHER ==
[2023-11-09 09:08] LABS: BASOPHILS # (AUTO) 0.05 K/uL (0.00-0.20); BASOPHILS % (AUTO) 0.8 % (0.0-5.0); EOSINOPHILS % (AUTO) 1.5 % (0.0-8.0); HEMATOCRIT 39.6 % (36-48); IMMATURE GRANULOCYTE ABSOLUTE 0.01 K/uL (0-1); LYMPHOCYTES % (AUTO) 45.6 % (21.0-51.0); MEAN CORPUSCULAR HEMOGLOBIN 28.6 pg (27.0-33.0); MEAN CORPUSCULAR HGB CONC 34.1 g/dL (32.0-36.0); MEAN CORPUSCULAR VOLUME 83.9 fL (79-99); MONOCYTES # (AUTO) 0.3 K/uL (0.1-1.0); MONOCYTES % (AUTO) 4.9 % (3.0-13.0); NEUTROPHILS # (AUTO) 3.1 K/uL (1.8-7.7); PLATELET COUNT (AUTO) 311 K/uL (130-400); RED BLOOD CELL COUNT(AUTO) 4.72 MIL/uL (4.00-5.50); WHITE BLOOD COUNT (AUTO) 6.5 K/uL (4.8-10.8)
[2023-11-09 09:26] LABS: APPEARANCE,URINE CLEAR (CLEAR); BILIRUBIN,URINE NEGATIVE (NEGATIVE); COLOR,URINE LIGHT-YELLOW (YELLOW); GLUCOSE, URINE (UA) NEGATIVE (NEGATIVE); KETONES,URINE NEGATIVE (NEGATIVE); LEUKOCYTE ESTERASE ,URINE 25 Leu/uL (NEGATIVE); NITRATE,URINE NEGATIVE (NEGATIVE); OCCULT BLOOD,URINE NEGATIVE (NEGATIVE); PH,URINE 5.5 (5.0-8.0); PROTEIN,URINE NEGATIVE (NEGATIVE); UROBILINOGEN,URINE 0.2 mg/dL (0.2-1.0)
[2023-11-09 09:28] LABS: ADD UA MICROSCOPIC YES
[2023-11-09 09:33] LABS: BACTERIA,URINE RARE /HPF (None Seen); MUCUS,URINE RARE LPF (None Seen); RBC,URINE 0-1 /HPF (0-1); SQUAMOUS EPITHELIAL CELL,UR FEW /HPF (0-2)
[2023-11-09 09:39] LABS: ALBUMIN 3.5 g/dL (3.5-5.0); BILIRUBIN,TOTAL 0.4 mg/dL (0.2-1.0); CREATININE 0.7 mg/dL (0.5-1.0); THYROID STIMULATING HORMONE 2.75 uIU/mL (0.36-3.74); TOTAL PROTEIN, SERUM 7.6 g/dL (6.0-8.3)
[2023-11-09 10:29] LABS: ERYTHROCYTE SEDIMENTATION RATE 6 MM/HR (0-20)
== END | disposition home or self-care (01) ==
LOC: LAB 10:00
PROVIDERS: ATTEND Nurse Practitioner Family
DX: Z13.220 Encounter for screening for lipoid disorders (principal); Z13.29 Encounter for screening for other suspected endocrine disorder; Z00.00 Encounter for general adult medical examination without abnormal findings; D50.9 Iron deficiency anemia, unspecified; R53.82 Chronic fatigue, unspecified; E55.9 Vitamin D deficiency, unspecified; I10 Essential (primary) hypertension
CPT/HCPCS: 36415; 80053; 80061; 81001; 82306; 84439; 84443; 84481; 85025; 85651

== ENCOUNTER 2024-01-31 09:52 | Emergency (ER) | payer OTHER ==
[~2024-01-31] VITALS: Ht 162.6 cm; Wt 66.2 kg
[~2024-01-31 09:52] MED LIST changes: +ONDA-243 PO; -ONDA4TAB10 PO
[2024-01-31 09:53] VITALS: BP 159/103; PULSE 128; RESP 20
[2024-01-31 10:18] LABS: RAPID GROUP A STREP negative (NEGATIVE)
[2024-01-31] MEDS: KETOROLAC 30MG VIAL (30MG/ML) IM ONE (10:21)
[2024-01-31 10:23] LABS: SARS-CoV-2, RNA, NAAT POSITIVE SARS CoV-2 (NEGATIVE)
[2024-01-31 10:30] LABS: INFLUENZA TYPE A Negative For Type A (NEGATIVE); INFLUENZA TYPE B Negative For Type B (NEGATIVE)
[2024-01-31] MEDS ORDERED: AZIT250T9 PO (10:44)
[2024-01-31] MEDS ORDERED: NIRMATRELVIR PO (10:44)
[2024-01-31] MEDS ORDERED: RITO100T4 PO (10:44)
== END 2024-01-31 11:19 | disposition home or self-care (01) ==
LOC: EDH 09:52
DX: U07.1 COVID-19 (principal); I10 Essential (primary) hypertension; Z20.822 Contact with and (suspected) exposure to COVID-19; Z90.49 Acquired absence of other specified parts of digestive tract; Z79.899 Other long term (current) drug therapy; Z98.890 Other specified postprocedural states; Z88.2 Allergy status to sulfonamides
CPT/HCPCS: 99283; 87635; 87880; 87804 ×2; 96372; J1885

== ENCOUNTER 2024-04-25 08:28 | Emergency (ER) | payer OTHER ==
[~2024-04-25] VITALS: Ht 162.6 cm; Wt 65.8 kg
[~2024-04-25 08:28] MED LIST changes: +AZIT250T9 PO; +NIRMATRELVIR PO; +RITO100T4 PO
[2024-04-25] MEDS: acetaMINOPHEN 500 MG TABLET PO ONE (08:48)
[2024-04-25] MEDS: CYCLOBENZAPRINE HCL 10 MG TABLET PO ONE (08:48)
[2024-04-25] MEDS ORDERED: CYCL7.5T27 PO (09:32)
[2024-04-25] MEDS ORDERED: NAPR-1196 PO (09:32)
[2024-04-25 09:47] VITALS: BP 143/83; PULSE 93; RESP 16; TEMP 98; O2SAT 99
== END 2024-04-25 09:55 | disposition home or self-care (01) ==
LOC: EDH 08:28
DX: S16.1XXA Strain of muscle, fascia and tendon at neck level, initial encounter (principal); Z88.2 Allergy status to sulfonamides; Z90.49 Acquired absence of other specified parts of digestive tract; Z98.51 Tubal ligation status; I10 Essential (primary) hypertension; V89.2XXA Person injured in unspecified motor-vehicle accident, traffic, initial encounter; Y93.89 Activity, other specified; Y92.89 Other specified places as the place of occurrence of the external cause; Y99.8 Other external cause status
CPT/HCPCS: 72040; 93005

== ENCOUNTER → 2024-05-16 | Outpatient (CLI) | payer OTHER ==
[~2024-05-16] MED LIST changes: +CYCL7.5T27 PO; +NAPR-1196 PO
[2024-05-16 08:59] LABS: BASOPHILS # (AUTO) 0.05 K/uL (0.00-0.20); BASOPHILS % (AUTO) 0.7 % (0.0-5.0); EOSINOPHILS # (AUTO) 0.09 K/uL (0.00-0.70); EOSINOPHILS % (AUTO) 1.3 % (0.0-8.0); HEMATOCRIT 41.8 % (36-48); IMMATURE GRANULOCYTE ABSOLUTE 0.02 K/uL (0-1); LYMPHOCYTES # (AUTO) 2.5 K/uL (1.0-4.8); LYMPHOCYTES % (AUTO) 37.1 % (21.0-51.0); MEAN CORPUSCULAR HEMOGLOBIN 28.3 pg (27.0-33.0); MEAN CORPUSCULAR HGB CONC 33.3 g/dL (32.0-36.0); MONOCYTES # (AUTO) 0.4 K/uL (0.1-1.0); MONOCYTES % (AUTO) 5.5 % (3.0-13.0); NEUTROPHILS # (AUTO) 3.8 K/uL (1.8-7.7); NEUTROPHILS % (AUTO) 55.1 % (40.0-77.0); PLATELET COUNT (AUTO) 298 K/uL (130-400); RED BLOOD CELL COUNT(AUTO) 4.92 MIL/uL (4.00-5.50); RED CELL DISTRIBUTION WIDTH 12.6 % (11.0-15.5); WHITE BLOOD COUNT (AUTO) 6.9 K/uL (4.8-10.8)
[2024-05-16 09:16] LABS: ALBUMIN 3.8 g/dL (3.5-5.0); BILIRUBIN,TOTAL 0.4 mg/dL (0.2-1.0); CREATININE 0.7 mg/dL (0.5-1.0); POTASSIUM 3.7 mmol/L (3.5-5.1); THYROID STIMULATING HORMONE 2.22 uIU/mL (0.36-3.74); TOTAL PROTEIN, SERUM 7.4 g/dL (6.0-8.3)
--- NOTE | 2024-05-16 09:18 | HMCIMG ---
CHEST 2VWS HISTORY: Shortness of breath COMPARISON: 05/17/2022 FINDINGS: Frontal and lateral projections of the chest were obtained. There is no acute pulmonary infiltrates or failure. The heart is not enlarged. Prominent interstitial markings are seen. Degenerative changes are seen of the thoracolumbar spine. IMPRESSION: 1. No acute pulmonary infiltrates.
[2024-05-16 10:04] LABS: ERYTHROCYTE SEDIMENTATION RATE 2 MM/HR (0-20)
[2024-05-16 11:22] LABS: APPEARANCE,URINE CLEAR (CLEAR); BILIRUBIN,URINE NEGATIVE (NEGATIVE); COLOR,URINE LIGHT-YELLOW (YELLOW); GLUCOSE, URINE (UA) NEGATIVE (NEGATIVE); KETONES,URINE NEGATIVE (NEGATIVE); LEUKOCYTE ESTERASE ,URINE NEGATIVE Leu/uL (NEGATIVE); NITRATE,URINE NEGATIVE (NEGATIVE); OCCULT BLOOD,URINE NEGATIVE (NEGATIVE); PH,URINE 5.5 (5.0-8.0); PROTEIN,URINE NEGATIVE (NEGATIVE); UROBILINOGEN,URINE 0.2 mg/dL (0.2-1.0)
[2024-05-16 11:24] LABS: ADD UA MICROSCOPIC NO
== END | disposition home or self-care (01) ==
LOC: LAB 08:09
PROVIDERS: ATTEND Nurse Practitioner Family
DX: R06.02 Shortness of breath (principal); I10 Essential (primary) hypertension; M47.815 Spondylosis without myelopathy or radiculopathy, thoracolumbar region; R53.82 Chronic fatigue, unspecified; E55.9 Vitamin D deficiency, unspecified; D50.9 Iron deficiency anemia, unspecified
CPT/HCPCS: 36415; 71046; 80053; 80061; 81003; 83605; 84439; 84443; 84481; 85025; 85378; 85651; 86140

== ENCOUNTER → 2024-08-06 | Outpatient (CLI) | payer OTHER ==
--- NOTE | 2024-08-06 12:38 | HMCIMG ---
CT CORONARY CALCIFICATION SCORING: Anatomic images were reviewed. The calcium score is being generated and reported separately. This report is for the visualized anatomy only. Visualized portions of the lungs are clear. Hilar and mediastinal structures appear normal. Osseous structures are unremarkable. Impression: 1. Negative noncardiac anatomic findings. 2. The calcium score is 0 consistent with absence of calcified plaque. CT was performed with one or more following dose reduction techniques: automated exposure control, adjustment of the mA and kv according to patient's size, or use of a iterative reconstruction technique.
== END | disposition home or self-care (01) ==
LOC: RAH 09:46
PROVIDERS: ATTEND Internal Medicine Cardiovascular Disease
DX: Z13.6 Encounter for screening for cardiovascular disorders (principal)
CPT/HCPCS: 75571

== ENCOUNTER → 2024-08-08 | Outpatient (CLI) | payer OTHER ==
[2024-08-08 09:34] LABS: BASOPHILS # (AUTO) 0.05 K/uL (0.00-0.20); BASOPHILS % (AUTO) 0.7 % (0.0-5.0); EOSINOPHILS # (AUTO) 0.09 K/uL (0.00-0.70); EOSINOPHILS % (AUTO) 1.3 % (0.0-8.0); HEMATOCRIT 40.9 % (36-48); IMMATURE GRANULOCYTE ABSOLUTE 0.03 K/uL (0-1); LYMPHOCYTES % (AUTO) 44.6 % (21.0-51.0); MEAN CORPUSCULAR HEMOGLOBIN 28.4 pg (27.0-33.0); MEAN CORPUSCULAR VOLUME 86.1 fL (79-99); MONOCYTES # (AUTO) 0.4 K/uL (0.1-1.0); MONOCYTES % (AUTO) 6.1 % (3.0-13.0); NEUTROPHILS # (AUTO) 3.1 K/uL (1.8-7.7); NEUTROPHILS % (AUTO) 46.9 % (40.0-77.0); PLATELET COUNT (AUTO) 320 K/uL (130-400); RED BLOOD CELL COUNT(AUTO) 4.75 MIL/uL (4.00-5.50); RED CELL DISTRIBUTION WIDTH 13.2 % (11.0-15.5); WHITE BLOOD COUNT (AUTO) 6.7 K/uL (4.8-10.8)
[2024-08-08 09:43] LABS: HEMOGLOBIN A1C 5.6 % (4.0-6.0)
[2024-08-08 09:56] LABS: ALBUMIN 3.3 g/dL (3.5-5.0); BILIRUBIN,TOTAL 0.4 mg/dL (0.2-1.0); CREATININE 0.6 mg/dL (0.5-1.0); POTASSIUM 3.7 mmol/L (3.5-5.1); THYROID STIMULATING HORMONE 2.18 uIU/mL (0.36-3.74); TOTAL PROTEIN, SERUM 7.3 g/dL (6.0-8.3)
[2024-08-08 11:27] LABS: ERYTHROCYTE SEDIMENTATION RATE 6 MM/HR (0-20)
== END | disposition home or self-care (01) ==
LOC: LAB 08:26
PROVIDERS: ATTEND Internal Medicine Cardiovascular Disease
DX: Z13.6 Encounter for screening for cardiovascular disorders (principal); I10 Essential (primary) hypertension; E78.2 Mixed hyperlipidemia; M79.604 Pain in right leg; G60.8 Other hereditary and idiopathic neuropathies; Z71.3 Dietary counseling and surveillance
CPT/HCPCS: 36415; 80053; 80061; 83036; 84443; 85025; 85378; 85651; 86038; 86215; 86235; 86431

== ENCOUNTER 2024-08-18 22:01 | Emergency (ER) | payer OTHER ==
[~2024-08-18] VITALS: Ht 154.9 cm; Wt 67.1 kg
--- NOTE | 2024-08-18 22:02 | NUR ---
UA CUP PROVIDED
[2024-08-18] MEDS: TRIAMCINOLONE ACETONIDE 40 MG/ML 1ML VIAL IM ONE (23:29)
[2024-08-18] MEDS: ORPHENADRINE 60MG/2ML IM ONE (23:30)
[2024-08-18] MEDS: ketOROlac 30MG VIAL (30MG/ML) IM ONE (23:30)
--- NOTE | 2024-08-19 00:21 | ERN ---
General Chief Complaint: Back Pain-No Injury Stated Complaint: LOW BACK PAIN Time Seen by MD: 22:45 Time Seen by Midlevel: 22:45 Source: patient History of Present Illness Initial Comments Patient is a 48 year old female with no significant past medical history presenting to the emergency department low back pain that started yesterday August 17, 2024. Denies any fall or direct injury to the area. Patient states her pain started after getting up from a chair while she was at work. Pain is rated eight on a 0-10 scale. Denies any urinary/bowel incontinence. Denies any focal weakness. Denies any numbness or tingling to bilateral lower extremities. Allergies: Coded Allergies: Sulfa (Sulfonamide Antibiotics) (Unverified Allergy, Unknown, 02/06/14) Home Meds Active Scripts Cyclobenzaprine HCl (Cyclobenzaprine HCl) 7.5 Mg Tablet, 1 TAB PO NIGHTLY\ for spasm for 7 Days, #7 TAB 0 Refills Prov:MANA LOZOYA MD 04/25/24 Naproxen (Naproxen) 250 Mg Tablet, 1 TAB PO BID for pain for 10 Days, #20 TAB 0 Refills Prov:MANA LOZOYA MD 04/25/24 [Nirmatrevir] No Conflict Check, 300 MG PO DAILY for 5 Days, #5 TAB 0 Refills Prov:NATALY VICENTE NP 01/31/24 Ritonavir (Ritonavir) 100 Mg Tablet, 100 MG PO DAILY for 5 Days, #5 TAB Prov:NATALY VICENTE NP 01/31/24 Azithromycin (Azithromycin) 250 Mg Tablet, 250 MG PO DAILY for TAKE TWO TABLETS DAY 1, #6 TAB 0 Refills Prov:NATALY VICENTE NP 01/31/24 Ondansetron (Ondansetron Odt) 4 Mg Tab.rapdis, 4 MG PO Q6HPRN PRN for nausea, #16 TAB 0 Refills Prov:ERICKA CUEVAS MD 09/24/22 Reported Medications Tamoxifen Citrate (Tamoxifen Citrate) 20 Mg Tablet, 20 MG PO HS, TAB 05/18/22 Past Medical History Past Medical History: Hypertension, Other Medical History Other: BREAST CANCER Past Surgical History: Other Surgical History Other: RT BREAST Social History Social History: Negative ROS Dictation CONSTITUTIONAL: Negative except for HPI HEAD/FACE: Negative except for HPI EENT: Negative except for HPI RESPIRATORY: Negative except for HPI GASTROINTESTINAL/ABDOMINAL: Negative except for HPI GENITOURINARY: Negative except for HPI MUSCULOSKELETAL: Negative except for HPI INTEGUMENTARY: Negative except for HPI NEUROLOGICAL/PSYCH: Negative except for HPI HEMATOLOGIC/LYMPHATIC: Negative except for HPI All Systems Negative, Except as noted above. 13 point review of systems assessed and all negative except for above. Physical Exam Physical Exam Dictation Vital Signs reviewed General Appearance: Alert, oriented x 3, no acute distress, well developed, nourished. Head and Face: non-traumatic. Eyes: PERRL, pink conjunctivas, eyelid no trauma, anterior chamber with arcus senilis. Ears: Pinnas intact and no signs of trauma or erythema ear canals clear and no discharge TM no erythema Nose: No discharge, no bleeding. Oropharynx: Mouth normal, tongue pink, pharynx clear,no erythema, tonsils no exudates, no abscesses noted, mucous membrane moist Neck: Supple, non-tender, no thyromegaly, no masses, no JVD, no bruits Breast:Deferred Chest:No tenderness, no crepitus, no paradoxical movement, no retractions Lungs:Clear, well-ventilated, symmetric, no rales, no wheezing, no rhonchi, no stridor, good breath sounds bilaterally Heart: Regular rate, regular rhythm, no murmur, no gallops Vascular: no peripheral edema, Abdomen: Soft, positive bowel sounds, nondistended, no guarding, nontender, no rebound, no masses no hepatomegaly, no splenomegaly, no Foster's sign, no hernias. Rectal: Deferred Genital: Deferred Neurological: Normal speech, motor function intact, sensory function intact Musculoskeletal: Neck nontender, full range of motion, back nontender, full range of motion, Extremities: nontender, full range of motion Skin: Color pink, dry, no turgor, no rash, no lacerations, no abrasions, no contusions. Lymphatic: Deferred MDM MDM: Differential diagnosis: Back strain, sciatica, contusion There are no social concerns with this patient. Prescription drug management Prescriptions will include: None Medical management and examination interpretation discussions were had by me with other qualified healthcare professionals as indicated for the patient's care. ED Course Orders Procedure Category Date Status Time Ketorolac PHA 08/18/24 Complete Tromethamine 30mg/Ml 23:30 Orphenadrine Citrate PHA 08/18/24 Complete (Norflex) 23:30 Triamcinolone Acet PHA 08/18/24 Complete 40mg/Ml 1ml (Kenalog 23:30 Current Medications Medications (Trade) Dose Ordered Sig/Jocelyne Route PRN Reason Start Time Stop Time Status Last Admin Dose Admin Ketorolac Tromethamine (toRADol) 30 mg ONCE ONCE IM 08/18/24 23:30 08/18/24 23:31 DC 08/18/24 23:30 Orphenadrine Citrate (Norflex) 60 mg ONCE ONCE IM 08/18/24 23:30 08/18/24 23:31 DC 08/18/24 23:30 Triamcinolone Acetonide (Kenalog 40) 40 mg ONCE ONCE IM 08/18/24 23:30 08/18/24 23:31 DC 08/18/24 23:29 Vital Signs Date Time Temp Pulse Resp B/P (MAP) Pulse Ox O2 Delivery O2 Flow Rate FiO2 08/19/24 00:28 98.4 75 18 114/69 98 Room Air* 0 21 08/18/24 22:57 98.4 78 18 122/80 99 Room Air* 0 21 08/18/24 22:02 98.1 117 20 149/90 98 Room Air DX & DISP Disposition: Discharge Departure Impression: Primary Impression: Low back strain Additional Impression: Sciatica Condition: Stable Referrals: ZAFAR CHÁVEZ (PCP) I have reviewed the case, and I agree with, Diagnosis and Plan I performed the substantive portion of the visit. I have reviewed and personally made and approve the management plan that is documented in the note by myself or the PEDRO. I acknowledge for responsibility for the patient's management plan. LATOSHA RUSS Aug 19, 2024 00:21
[2024-08-19 00:28] VITALS: BP 114/69; PULSE 75; RESP 18; TEMP 98.4; O2SAT 98
== END 2024-08-19 00:34 | disposition home or self-care (01) ==
LOC: EDH 22:01
DX: S39.012A Strain of muscle, fascia and tendon of lower back, initial encounter (principal); I10 Essential (primary) hypertension; Z85.3 Personal history of malignant neoplasm of breast; Z88.2 Allergy status to sulfonamides; X58.XXXA Exposure to other specified factors, initial encounter; Y93.89 Activity, other specified; Y92.89 Other specified places as the place of occurrence of the external cause; Y99.8 Other external cause status
CPT/HCPCS: 99284; 96372 ×3; J1885; J3301; J2360

== ENCOUNTER → 2024-09-07 | Outpatient (CLI) | payer OTHER ==
--- NOTE | 2024-09-07 16:59 | HMCIMG ---
NM BONE SCAN WHOLE BODY REASON: Malignant neoplasm of overlapping sites of right female breast. COMPARISON: None TECHNIQUE: Total body bone imaging study was performed with 23 mCi of technetium MDP through intravenous route. FINDINGS: Increased activities are seen involving the shoulders, knees, ankles consistent with degenerative changes. No scintigraphic evidence of bone metastases is seen. IMPRESSION: No scintigraphic evidence of metastases is seen.
== END | disposition home or self-care (01) ==
LOC: RAH 09:14
PROVIDERS: ATTEND Internal Medicine Hematology & Oncology
DX: C50.811 Malignant neoplasm of overlapping sites of right female breast (principal)
CPT/HCPCS: 78306; A9503

== ENCOUNTER → 2024-09-10 | Outpatient (CLI) | payer OTHER ==
--- NOTE | 2024-09-10 11:25 | HMCIMG ---
MAMMO DX IMPLANT UNI LEFT HISTORY: Breast cancer COMPARISON: None TECHNIQUE: Left breast screening mammogram with CAD was performed with craniocaudal and mediolateral oblique projections. Additional pushback views were obtained. FINDINGS: There are bilateral breast implants. There are scattered areas of fibroglandular density. Asymmetric breast density is seen in the upper outer quadrant of the left breast. MRI and ultrasound may be performed for complete evaluation. There is no evidence of a dominant mass, or suspicious microcalcification. There is no evidence of nipple retraction or skin thickening. IMPRESSION: 1. Asymmetric breast density is seen in the upper outer quadrant of the left breast. MRI and ultrasound may be performed for complete evaluation per referring physician request. Bilateral breast implants. Patient was entered into a reminder system with a target due date for their next mammogram. BI-RADS: CATEGORY 2: BENIGN FINDINGS Recommend monthly self breast exam as well as annual clinical examination. A negative x-ray should not delay biopsy if a dominant or clinically suspicious mass is present, since 8-10% of cancers are not identified by mammography. Dense breasts particularly, may obscure an underlying neoplasm. Some of these may be detected clinically and therefore, clinical examination is an essential part of breast evaluation.
== END | disposition home or self-care (01) ==
LOC: RAH 10:42
PROVIDERS: ATTEND Internal Medicine Hematology & Oncology
DX: R92.322 Mammographic fibroglandular density, left breast (principal); C50.811 Malignant neoplasm of overlapping sites of right female breast; E66.9 Obesity, unspecified
CPT/HCPCS: 77065

== ENCOUNTER → 2024-09-27 | Outpatient (CLI) | payer OTHER ==
[2024-09-27 08:57] LABS: BASOPHILS # (AUTO) 0.04 K/uL (0.00-0.20); BASOPHILS % (AUTO) 0.5 % (0.0-5.0); EOSINOPHILS # (AUTO) 0.09 K/uL (0.00-0.70); EOSINOPHILS % (AUTO) 1.1 % (0.0-8.0); HEMATOCRIT 41.4 % (36-48); IMMATURE GRANULOCYTE ABSOLUTE 0.03 K/uL (0-1); LYMPHOCYTES # (AUTO) 3.1 K/uL (1.0-4.8); LYMPHOCYTES % (AUTO) 37.9 % (21.0-51.0); MEAN CORPUSCULAR HEMOGLOBIN 28.6 pg (27.0-33.0); MEAN CORPUSCULAR HGB CONC 32.6 g/dL (32.0-36.0); MEAN CORPUSCULAR VOLUME 87.7 fL (79-99); MONOCYTES # (AUTO) 0.5 K/uL (0.1-1.0); MONOCYTES % (AUTO) 5.8 % (3.0-13.0); NEUTROPHILS # (AUTO) 4.5 K/uL (1.8-7.7); NEUTROPHILS % (AUTO) 54.3 % (40.0-77.0); PLATELET COUNT (AUTO) 321 K/uL (130-400); RED BLOOD CELL COUNT(AUTO) 4.72 MIL/uL (4.00-5.50); WHITE BLOOD COUNT (AUTO) 8.2 K/uL (4.8-10.8)
[2024-09-27 09:06] LABS: ADD UA MICROSCOPIC NO; APPEARANCE,URINE CLEAR (CLEAR); BILIRUBIN,URINE NEGATIVE (NEGATIVE); COLOR,URINE LIGHT-YELLOW (YELLOW); GLUCOSE, URINE (UA) NEGATIVE (NEGATIVE); KETONES,URINE NEGATIVE (NEGATIVE); LEUKOCYTE ESTERASE ,URINE NEGATIVE Leu/uL (NEGATIVE); NITRATE,URINE NEGATIVE (NEGATIVE); OCCULT BLOOD,URINE NEGATIVE (NEGATIVE); PH,URINE 6.5 (5.0-8.0); PROTEIN,URINE NEGATIVE (NEGATIVE); UROBILINOGEN,URINE 0.2 mg/dL (0.2-1.0)
[2024-09-27 09:32] LABS: ALBUMIN 3.6 g/dL (3.5-5.0); BILIRUBIN,TOTAL 0.3 mg/dL (0.2-1.0); CREATININE 0.7 mg/dL (0.5-1.0); POTASSIUM 4.3 mmol/L (3.5-5.1); THYROID STIMULATING HORMONE 3.2 uIU/mL (0.36-3.74); TOTAL PROTEIN, SERUM 7.5 g/dL (6.0-8.3)
[2024-09-27 10:18] LABS: ERYTHROCYTE SEDIMENTATION RATE 5 MM/HR (0-20)
== END | disposition home or self-care (01) ==
LOC: LAB 08:19
PROVIDERS: ATTEND Nurse Practitioner Family
DX: I10 Essential (primary) hypertension (principal); Z00.00 Encounter for general adult medical examination without abnormal findings; E55.9 Vitamin D deficiency, unspecified; R53.82 Chronic fatigue, unspecified
CPT/HCPCS: 36415; 80053; 80061; 81003; 82306; 84439; 84443; 84481; 85025; 85651

== ENCOUNTER → 2024-10-29 | Outpatient (CLI) | payer OTHER ==
--- NOTE | 2024-10-29 09:41 | HMCIMG ---
US BREAST COMPLETE UNILATERAL REASON: dense breasts. COMPARISON: Mammogram from 09/10/2024 TECHNIQUE: Left breast ultrasound study was performed. FINDINGS: Dense fibroglandular tissue is seen of left breast. There are left breast cysts at 1:00 measuring 2 mm and 9:30 o'clock measuring 6 mm. Left axillary lymph nodes are seen measuring 9 mm and 12 mm each. IMPRESSION: Left breast cysts. CATEGORY 2: BENIGN FINDINGS Recommend monthly self breast exam as well as annual clinical examination.
== END | disposition home or self-care (01) ==
LOC: RAH 08:30
PROVIDERS: ATTEND Nurse Practitioner Family
DX: N60.02 Solitary cyst of left breast (principal); R92.30 Dense breasts, unspecified
CPT/HCPCS: 76641

== ENCOUNTER 2025-01-14 18:16 | Emergency (ER) | payer OTHER ==
[~2025-01-14] VITALS: Ht 162.6 cm; Wt 68.0 kg
--- NOTE | 2025-01-14 18:44 | ERN ---
ED Note History of Present Illness Stated Complaint: LEFT BREAST/RIB PAIN Chief Complaint: Breast Problem Time Seen by MD: 18:37 Time Seen by Midlevel: 18:40 Dictation: Ms. Soler is a 49 year old female with history of hypertension and breast cancer/right mastectomy who presented to the emergency department this evening for evaluation of a rib pain. She reports left rib pain/breast pain rated 8/10. She denies wounds, mass, or skin changes. She Denies fever, chills, shortness of breath, cough, chest pain, palpitations, edema, abdominal pain, nausea, vomiting, hematemesis, constipation, diarrhea, melena, hematochezia, dysuria, headache, dizziness, or focal weakness/paresthesia. She underwent US of the left breast on 10/29 which noted dense fibroglandular tissue with cysts at 1:00 a.m. measuring 2 mm and it 9:00 a.m. measuring 6 mm. Left axillary lymph nodes are seen measuring 9 mm and 12 mm each. They recommended monthly self-breast exam as well as annual clinical evaluation; benign findings. Oncologist: Dr. Jaime Raya PCP: THADDEUS Cloud Allergies: Coded Allergies: Sulfa (Sulfonamide Antibiotics) (Unverified Allergy, Unknown, 02/06/14) Emergency Care CALCULATION REVIEWER: None Home Meds Active Scripts Cyclobenzaprine HCl (Flexeril) 10 Mg Tab, 10 MG PO q12 hours prn, #12 TAB 0 Ref ills Prov:NATALY VICENTE NP 01/14/25 Ketorolac Tromethamine (Toradol) 10 Mg Tab, 1 TAB PO Q6HPRN PRN for pain for 5 Days, #20 TAB 0 Refills Prov:NATALY VICENTE NP 01/14/25 Cyclobenzaprine HCl (Cyclobenzaprine HCl) 7.5 Mg Tablet, 1 TAB PO NIGHTLY\ for spasm for 7 Days, #7 TAB 0 Refills Prov:MANA LOZOYA MD 04/25/24 Naproxen (Naproxen) 250 Mg Tablet, 1 TAB PO BID for pain for 10 Days, #20 TAB 0 Refills Prov:MANA LOZOYA MD 04/25/24 [Nirmatrevir] No Conflict Check, 300 MG PO DAILY for 5 Days, #5 TAB 0 Refills Prov:NATALY VICENTE NP 01/31/24 Ritonavir (Ritonavir) 100 Mg Tablet, 100 MG PO DAILY for 5 Days, #5 TAB Prov:NATALY VICENTE RECORDING ENGINEER 01/31/24 Azithromycin (Azithromycin) 250 Mg Tablet, 250 MG PO DAILY for TAKE TWO TABLETS DAY 1, #6 TAB 0 Refills Prov:NATALY VICENTE RECORDING ENGINEER 01/31/24 Ondansetron (Ondansetron Odt) 4 Mg Tab.rapdis, 4 MG PO Q6HPRN PRN for nausea, #16 TAB 0 Refills Prov:ERICKA CUEVAS MD 09/24/22 Reported Medications Tamoxifen Citrate (Tamoxifen Citrate) 20 Mg Tablet, 20 MG PO HS, TAB 05/18/22 Past Medical History Past Medical History: Hypertension, Other Additional Past Medical Hx: BREAST CANCER Surgical History: Cholecystectomy, Other Surgical History Other: RT BREAST, CLEFT LIP, RHINOPLASTY PSYCH History: no pertinent psych hx Social History: Negative RN Note Reviewed/Agreed w/PFSH: Yes Review of System Dictation REVIEW OF SYSTEMS: CONSTITUTIONAL: Patient denies fevers, chills, sweats and weight changes. EYES: Patient denies any visual symptoms. EARS, NOSE, AND THROAT: No difficulties with hearing. No symptoms of rhinitis or sore throat. CARDIOVASCULAR: Patient denies chest pains, palpitations, orthopnea and paroxysmal nocturnal dyspnea. RESPIRATORY: No dyspnea on exertion, no wheezing or cough. Reports left rib pain/left breast pain; rates 8/10. GI: No nausea, vomiting, diarrhea, constipation, abdominal pain, hematochezia or melena. : No urinary hesitancy or dribbling. No nocturia or urinary frequency. No abnormal urethral discharge. MUSCULOSKELETAL: No myalgias or arthralgias. NEUROLOGIC: No chronic headaches, no seizures. Patient denies numbness, tingling or weakness. PSYCHIATRIC: Patient denies problems with mood disturbance. No problems with anxiety. ENDOCRINE: No excessive urination or excessive thirst. DERMATOLOGIC: Patient denies any rashes or skin changes. Initial Vital Sign VS Vital Signs Date Time Temp Pulse Resp B/P (MAP) Pulse Ox O2 Delivery O2 Flow Rate FiO2 01/14/25 18:17 97.3 100 16 172/89 100 Room Air 0 01/14/25 19:31 21 Physical Exam Dictation Vital signs: Reviewed. Afebrile Constitutional uncomfortable Head/Face: Normocephalic, atraumatic. Eyes: Periorbital areas with no swelling, redness, or edema. Lids and lashes are normal. Conjunctival injection is absent. Sclera anicteric. Pupils equal, round, reactive to light. ENT: Pinnas intact and no signs of trauma or erythema. Ear canals clear and no discharge. TMs no erythema. No nasal discharge or bleeding noted. Oropharynx with no exudate, redness, swelling, masses, exudates, or evidence of obstruction. Uvula midline. Mucous membranes moist. Neck: Trachea midline, no masses palpated, and no cervical lymphadenopathy. No swelling. Supple, full range of motion. Chest/Axilla: No tenderness, no crepitus, no paradoxical movement, no retractions. Cardiovascular: Regular rate, regular rhythm, no murmur, no gallops. Symmetric pulses. No peripheral edema. Normotensive; 125/77 Respiratory: Respirations even and unlabored. Lung sounds clear; no wheezes, rales or rhonchi. Room air SpO2 98% tenderness upon palpation of left lateral and anterior chest wall. No crepitus or bony deformity. Nipple intact; no drainage/irritation. No mass noted no open wounds. No discoloration Gastrointestinal: Inspection is normal. No distention is appreciated. Bowel sounds are normal. No mass or organomegaly . There is no tenderness. No rebound. No rigidity. No voluntary or involuntary guarding. No Foster's sign. Neurological: Normal speech, gross motor function intact, gross sensory function intact. No focal weakness/Paresthesia. Musculoskeletal/Extremities: All extremities have full range of motion, no pain or tenderness on palpation. Symmetric pulses. Integumentary: Intact. Skin is normal color, warm and dry. Cap refill less than 2 seconds. Results (Laboratory/Radiology) Laboratory/Radiology Laboratory Tests Test 01/14/25 21:14 White Blood Count 9.5 K/uL (4.8-10.8) Red Blood Count 4.59 MIL/uL (4.00-5.50) Hemoglobin 13.0 g/dL (12.0-16.0) Hematocrit 39.4 % (36-48) Mean Corpuscular Volume 85.8 fL (79-99) Mean Corpuscular Hemoglobin 28.3 pg (27.0-33.0) Mean Corpuscular Hemoglobin Concent 33.0 g/dL (32.0-36.0) Red Cell Distribution Width 12.9 % (11.0-15.5) Platelet Count 284 K/uL (130-400) Mean Platelet Volume 9.7 fL (7.5-10.5) Immature Granulocyte % (Auto) 0.2 % (0-1) Neutrophils (%) (Auto) 53.2 % (40.0-77.0) Lymphocytes (%) (Auto) 38.9 % (21.0-51.0) Monocytes (%) (Auto) 5.7 % (3.0-13.0) Eosinophils (%) (Auto) 1.4 % (0.0-8.0) Basophils (%) (Auto) 0.6 % (0.0-5.0) Neutrophils # (Auto) 5.1 K/uL (1.8-7.7) Lymphocytes # (Auto) 3.7 K/uL (1.0-4.8) Monocytes # (Auto) 0.5 K/uL (0.1-1.0) Eosinophils # (Auto) 0.13 K/uL (0.00-0.70) Basophils # (Auto) 0.06 K/uL (0.00-0.20) Absolute Immature Granulocyte (auto 0.02 K/uL (0-1) Nucleated Red Blood Cells 0.0 % (0.0-0.19) Sodium Level 142 mmol/L (136-145) Potassium Level 3.8 mmol/L (3.5-5.1) Chloride Level 107 mmol/L (101-111) Carbon Dioxide Level 26 mmol/L (21-32) Blood Urea Nitrogen 11 mg/dL (7-18) Creatinine 0.7 mg/dL (0.5-1.0) Glomerular Filtration Rate Calc 106 mL/min (>90) Random Glucose 89 mg/dL (70-105) Total Calcium 8.9 mg/dL (8.5-10.1) Labs Reviewed?: Yes X-RAY Comment: PATIENT: FRANCES GARCIA MR#: [id number] : 1975 SEX: F AGE: 49 LOCATION: [facility] ORDER 42 STATUS: REG ER REPORT#: [id number] SERVICE 41 REASON: right breast/chest and rib pain ORDERING PHYSICIAN: NATALY VICENTE NP PROCEDURE: RIB LT W C - RIBS UNI LT W PA CHEST 3+VWS EXAM: CR left Rib, 5 View. CLINICAL HISTORY: right breast/chest and rib pain COMPARISON: None provided. FINDINGS: LUNGS: The visualized lungs appear essentially clear. PLEURAL SPACES: No pneumothorax evident. No pleural effusions. BONES: No visible acute rib fracture. IMPRESSION: No visible acute rib fracture. No pneumothorax. /[place] DICTATED BY: DANILO RYDER Jr., MD DATE: 01/14/252036 ELECTRONICALLY SIGNED BY: DANILO RYDER Jr., MD DATE: 01/14/252036 ED Course ED Course Orders Procedure Category Date Status Time Diazepam 5mg Tab PHA 01/14/25 Complete (Valium 5 Mg Tab) 19:00 Hydrocodone/Apap PHA 01/14/25 Complete 5/325 ([place] 5/325mg) 19:00 Ribs Uni Lt W Pa RAD 01/14/25 Resulted Chest 3+Vws 18:42 Cbc With Differential LAB 01/14/25 Complete 20:58 Basic Metabolic Panel LAB 01/14/25 Complete 20:58 Current Medications Medications (Trade) Dose Ordered Sig/Jocelyne Route PRN Reason Start Time Stop Time Status Last Admin Dose Admin Acetaminophen/ Hydrocodone Bitart (NORco 5/325MG) 1 tab ONCE ONCE PO 01/14/25 19:00 01/14/25 19:01 DC 01/14/25 19:01 Diazepam (VALium 5 mg TAB) 5 mg ONCE ONCE PO 01/14/25 19:00 01/14/25 19:01 DC 01/14/25 19:01 Vital Signs Date Time Temp Pulse Resp B/P (MAP) Pulse Ox O2 Delivery O2 Flow Rate FiO2 01/14/25 19:31 86 18 146/85 100 Room Air* 0 21 01/14/25 18:17 97.3 100 16 172/89 100 Room Air 0 Uneventful ED course. Vital signs are stable; afebrile and normotensive with room air SpO2 98-100%. Pain 8/10 left lateral and anterior chest wall. Chest x-ray unremarkable. Laboratory findings as noted below. No elevation of WBCs. H&H are stable. No electrolyte derangement. While in the ED she received doses of [place], Valium, and Dilaudid. Medical Decision Making MDM MDM: Differential diagnosis: Costochondritis, CPAP, breast mass, cellulitis Rationale: Tests considered and ordered secondary to shared decision making include: Lab, x-ray Previous outside records reviewed: Old ER visits. Risk of complication and/or morbidity or mortality of patient management: None Medications-Per medication reconciliation Need for hospitalization: Patient does not meet criteria for hospitalization. Need for emergency major/minor surgery: No There are no social concerns with this patient. Prescription drug management: Toradol, Flexeril Prescriptions will include symptomatic care Patient's prior external medical records from other ER visits were reviewed by me as indicated. Prior testing and results from previous visits were reviewed. Prior tests were taken into account with medical decision making and resource utilization, independent historian/historians were used to obtain complete medical history. I independently interpreted the test that were performed, results were reviewed by me and considered findings on radiology if ordered. Medical management and examination interpretation discussions were had by me with other qualified healthcare professionals as indicated for the patient's care. DX & DISP Disposition: Discharge Departure Impression: Primary Impression: Rib pain on left side Additional Impressions: Breast pain, left, Costochondritis Condition: Stable Scripts Cyclobenzaprine HCl (Flexeril) 10 Mg Tab 10 MG PO q12 hours prn, #12 TAB 0 Refills Prov: NATALY VICENTE NP 01/14/25 Ketorolac Tromethamine (Toradol) 10 Mg Tab 1 TAB PO Q6HPRN PRN for pain for 5 Days, #20 TAB 0 Refills Prov: NATALY VICENTE RECORDING ENGINEER 01/14/25 Additional Instructions: Follow up with your primary care provider. Continue to perform a monthly self- breast exams and follow up mammograms/ultrasounds. May take Flexeril every 12 hours as needed for spasms. May take Toradol every 6 hours as needed for discomfort. Return to the emergency department for any worsening of symptoms or concerns. Referrals: ZAFAR CLOUD (PCP) JAIME RAYA MD Time of Disposition: 21:48 NATALY VICENTE NP Jan 14, 2025 18:44
[2025-01-14] MEDS: diazePAM 5 MG TAB PO ONE (19:01)
[2025-01-14] MEDS: HYDROcodone/APAP 5/325 1 TAB TABLET PO ONE (19:01)
--- NOTE | 2025-01-14 19:38 | HMCIMG ---
EXAM: CR left Rib, 5 View. CLINICAL HISTORY: right breast/chest and rib pain COMPARISON: None provided. FINDINGS: LUNGS: The visualized lungs appear essentially clear. PLEURAL SPACES: No pneumothorax evident. No pleural effusions. BONES: No visible acute rib fracture. IMPRESSION: No visible acute rib fracture. No pneumothorax. /[place]
[2025-01-14] MEDS ORDERED: CYCL10TA16 PO (20:55)
[2025-01-14] MEDS ORDERED: KETO10 PO (20:55)
[2025-01-14 21:22] LABS: IMMATURE GRANULOCYTE ABSOLUTE 0.02 K/uL (0-1); NUCLEATED RED BLOOD CELLS 0.0 % (0.0-0.19); PLATELET COUNT (AUTO) 284 K/uL (130-400); RED BLOOD CELL COUNT(AUTO) 4.59 MIL/uL (4.00-5.50); RED CELL DISTRIBUTION WIDTH 12.9 % (11.0-15.5); WHITE BLOOD COUNT (AUTO) 9.5 K/uL (4.8-10.8)
[2025-01-14 21:29] LABS: CREATININE 0.7 mg/dL (0.5-1.0); GLOMERULAR FILTR. RATE CALC 106.0 mL/min (>90); GLUCOSE,RANDOM 89.0 mg/dL (70-105); SODIUM SERUM 142.0 mmol/L (136-145); UREA NITROGEN, BLOOD 11.0 mg/dL (7-18)
[2025-01-14 22:44] VITALS: BP 128/79; PULSE 74; RESP 18; TEMP 98.4; O2SAT 98
== END 2025-01-14 22:48 | disposition home or self-care (01) ==
LOC: EDH 18:16
DX: R07.81 Pleurodynia (principal); N64.4 Mastodynia; M94.0 Chondrocostal junction syndrome [Tietze]; I10 Essential (primary) hypertension; Z85.3 Personal history of malignant neoplasm of breast; Z88.2 Allergy status to sulfonamides; Z90.49 Acquired absence of other specified parts of digestive tract
CPT/HCPCS: 99284; 80048; 85025; 36415; 71101; 96372; J1171

== ENCOUNTER → 2025-01-15 | Outpatient (CLI) | payer OTHER ==
[~2025-01-15] MED LIST changes: +CYCL10TA16 PO; +IBUP-2077 PO; +KETO10 PO
[2025-01-15 09:55] LABS: IMMATURE GRANULOCYTE ABSOLUTE 0.01 K/uL (0-1); NUCLEATED RED BLOOD CELLS 0.0 % (0.0-0.19); PLATELET COUNT (AUTO) 269 K/uL (130-400); RED BLOOD CELL COUNT(AUTO) 4.77 MIL/uL (4.00-5.50); RED CELL DISTRIBUTION WIDTH 12.9 % (11.0-15.5); WHITE BLOOD COUNT (AUTO) 7.3 K/uL (4.8-10.8)
[2025-01-15 10:18] LABS: ASPARTATE AMINOTRANSFERASE 25.0 U/L (10-37); CREATININE 0.7 mg/dL (0.5-1.0); GLOMERULAR FILTR. RATE CALC 106.0 mL/min (>90); GLUCOSE,RANDOM 87.0 mg/dL (70-105); LDL DIRECT 100.0 mg/dL (0-99); SODIUM SERUM 141.0 mmol/L (136-145); TOTAL PROTEIN, SERUM 7.1 g/dL (6.0-8.3); UREA NITROGEN, BLOOD 10.0 mg/dL (7-18)
[2025-01-15 10:58] LABS: ERYTHROCYTE SEDIMENTATION RATE 5 MM/HR (0-20)
[2025-01-15 14:33] LABS: APPEARANCE,URINE CLEAR (CLEAR); GLUCOSE, URINE (UA) NEGATIVE (NEGATIVE); LEUKOCYTE ESTERASE ,URINE NEGATIVE Leu/uL (NEGATIVE); NITRATE,URINE NEGATIVE (NEGATIVE); OCCULT BLOOD,URINE NEGATIVE (NEGATIVE)
[2025-01-15 14:35] LABS: ADD UA MICROSCOPIC NO
== END | disposition home or self-care (01) ==
LOC: LAB 09:23
PROVIDERS: ATTEND Nurse Practitioner Family
DX: I10 Essential (primary) hypertension (principal); E55.9 Vitamin D deficiency, unspecified; D50.9 Iron deficiency anemia, unspecified; R53.82 Chronic fatigue, unspecified; R07.81 Pleurodynia; R10.9 Unspecified abdominal pain
CPT/HCPCS: 36415; 80053; 80061; 81003; 82306; 84439; 84443; 84481; 85025; 85651; 86140

== ENCOUNTER 2025-01-16 13:46 | Emergency (ER) | payer OTHER ==
[~2025-01-16] VITALS: Ht 162.6 cm; Wt 68.0 kg
[~2025-01-16 13:46] MED LIST changes: -IBUP-2077 PO
--- NOTE | 2025-01-16 14:01 | ERN ---
ED Note History of Present Illness Stated Complaint: BACK PAIN Chief Complaint: Back Pain-No Injury Time Seen by MD: 13:51 Dictation: PATIENT IS A 49-YEAR-OLD FEMALE COMING IN TODAY WITH LEFT LOWER QUADRANT PAIN THAT RADIATES TO THE RIGHT FLANK ONSET SEVERAL DAYS PRIOR TO ARRIVAL. NO FEVER NO CHILLS NO NAUSEA VOMITING. WAS SEEN HERE SEVERAL DAYS AGO AND DIAGNOSED WITH COSTOCHONDRITIS AND WAS TREATED WITH ANTI-INFLAMMATORY DRUGS AND PREDNISONE, IT NEVER GOT BETTER. SHE SAW HER DOCTOR YESTERDAY WHO DIMITRI A BATTERY OF TESTS, TOLD HER IF THE PAIN WAS NOT BETTER TO COME TO THE EMERGENCY ROOM FOR ADVANCED IMAGING AND WORKUP. Allergies: Coded Allergies: Sulfa (Sulfonamide Antibiotics) (Unverified Allergy, Unknown, 02/06/14) Home Meds Active Scripts Cyclobenzaprine HCl (Flexeril) 10 Mg Tab, 10 MG PO q12 hours prn, #12 TAB 0 Refills Prov:NATALY VICENTE NP 01/14/25 Ketorolac Tromethamine (Toradol) 10 Mg Tab, 1 TAB PO Q6HPRN PRN for pain for 5 Days, #20 TAB 0 Refills Prov:NATALY VICENTE NP 01/14/25 Cyclobenzaprine HCl (Cyclobenzaprine HCl) 7.5 Mg Tablet, 1 TAB PO NIGHTLY\ for spasm for 7 Days, #7 TAB 0 Refills Prov:MANA LOZOYA MD 04/25/24 Naproxen (Naproxen) 250 Mg Tablet, 1 TAB PO BID for pain for 10 Days, #20 TAB 0 Refills Prov:MANA LOZOYA MD 04/25/24 [Nirmatrevir] No Conflict Check, 300 MG PO DAILY for 5 Days, #5 TAB 0 Refills Prov:NATALY VICENTE NP 01/31/24 Ritonavir (Ritonavir) 100 Mg Tablet, 100 MG PO DAILY for 5 Days, #5 TAB Prov:NATALY VICENTE NP 01/31/24 Azithromycin (Azithromycin) 250 Mg Tablet, 250 MG PO DAILY for TAKE TWO TABLETS DAY 1, #6 TAB 0 Refills Prov:NATALY VICENTE NP 01/31/24 Ondansetron (Ondansetron Odt) 4 Mg Tab.rapdis, 4 MG PO Q6HPRN PRN for nausea, #16 TAB 0 Refills Prov:ERICKA CUEVAS MD 09/24/22 Reported Medications Tamoxifen Citrate (Tamoxifen Citrate) 20 Mg Tablet, 20 MG PO HS, TAB 05/18/22 Past Medical History Past Medical History: Hypertension, Other Additional Past Medical Hx: BREAST CANCER Surgical History: Cholecystectomy, Other Surgical History Other: RT BREAST, CLEFT LIP, RHINOPLASTY Social History: Negative History: Not Applicable RN Note Reviewed/Agreed w/PFSH: Yes Review of System Dictation CONSTITUTIONAL: NEGATIVE EXCEPT FOR HPI HEAD/FACE: NEGATIVE EXCEPT FOR HPI EENT: NEGATIVE EXCEPT FOR HPI RESPIRATORY: NEGATIVE EXCEPT FOR HPI GASTROINTESTINAL/ABDOMINAL: NEGATIVE EXCEPT FOR HPI LEFT LOWER QUADRANT PAIN THAT RADIATES TO RIGHT FLANK GENITOURINARY: NEGATIVE EXCEPT FOR HPI MUSCULOSKELETAL: NEGATIVE EXCEPT FOR HPI INTEGUMENTARY: NEGATIVE EXCEPT FOR HPI NEUROLOGICAL/PSYCH: NEGATIVE EXCEPT FOR HPI HEMATOLOGIC/LYMPHATIC: NEGATIVE EXCEPT FOR HPI ALL SYSTEMS NEGATIVE, EXCEPT NOTED ABOVE. 13 POINT REVIEW OF SYSTEMS ASSESSED AND ALL NEGATIVE EXCEPT FOR ABOVE. Initial Vital Sign VS Vital Signs Date Time Temp Pulse Resp B/P (MAP) Pulse Ox O2 Delivery O2 Flow Rate FiO2 01/16/25 13:51 96.4 104 20 174/95 99 Room Air Physical Exam Dictation VITAL SIGNS REVIEWED GENERAL APPEARANCE: ALERT, ORIENTED X 3, MILD ACUTE DISTRESS, WELL DEVELOPED, NOURISHED. HEAD AND FACE: NON-TRAUMATIC. EYES: PERRL, PINK CONJUNCTIVAS, EYELID NO TRAUMA, ANTERIOR CHAMBER WITH ARCUS SENILIS. EARS: PINNAS INTACT AND NO SIGNS OF TRAUMA OR ERYTHEMA EAR CANALS CLEAR AND NO DISCHARGE TM NO ERYTHEMA NOSE: NO DISCHARGE, NO BLEEDING. OROPHARYNX: MOUTH NORMAL, TONGUE PINK, PHARYNX CLEAR,NO ERYTHEMA, TONSILS NO EXUDATES, NO ABSCESSES NOTED, MUCOUS MEMBRANE MOIST NECK: SUPPLE, NON-TENDER, NO THYROMEGALY, NO MASSES, NO JVD, NO BRUITS BREAST:DEFERRED CHEST:NO TENDERNESS, NO CREPITUS, NO PARADOXICAL MOVEMENT, NO RETRACTIONS LUNGS:CLEAR, WELL-VENTILATED, SYMMETRIC, NO RALES, NO WHEEZING, NO RHONCHI, NO STRIDOR, GOOD BREATH SOUNDS BILATERALLY HEART: REGULAR RATE, REGULAR RHYTHM, NO MURMUR, NO GALLOPS VASCULAR: NO PERIPHERAL EDEMA, ABDOMEN: SOFT, POSITIVE BOWEL SOUNDS, NONDISTENDED, NO GUARDING, LEFT LOWER QUADRANT PAIN WITH MILD TENDERNESS. NEGATIVE CVAT BILATERALLY RECTAL: DEFERRED GENITAL: DEFERRED NEUROLOGICAL: NORMAL SPEECH, MOTOR FUNCTION INTACT, SENSORY FUNCTION INTACT MUSCULOSKELETAL: NECK NONTENDER, FULL RANGE OF MOTION, BACK NONTENDER, FULL RANGE OF MOTION, EXTREMITIES: NONTENDER, FULL RANGE OF MOTION SKIN: COLOR PINK, DRY, NO TURGOR, NO RASH, NO LACERATIONS, NO ABRASIONS, NO CONTUSIONS. LYMPHATIC: DEFERRED Results (Laboratory/Radiology) Laboratory/Radiology Laboratory Tests Test 01/16/25 14:01 01/16/25 14:11 Urine Color LIGHT-YELLOW (YELLOW) Urine Appearance CLEAR (CLEAR) Urine pH 5.5 (5.0-8.0) Urine Specific [place] 1.016 (1.001-1.031) Urine Protein NEGATIVE mg/dL (NEGATIVE) Urine Glucose (UA) NEGATIVE mg/dL (NEGATIVE) Urine Ketones NEGATIVE mg/dL (NEGATIVE) Urine Occult Blood NEGATIVE (NEGATIVE) Urine Nitrate NEGATIVE (NEGATIVE) Urine Bilirubin NEGATIVE mg/dL (NEGATIVE) Urine Urobilinogen 0.2 mg/dL (0.2-1.0) Urine Leukocyte Esterase 25 [place]/uL (NEGATIVE) H Urine RBC 2-5 /HPF (0-1) H Urine WBC 2-5 /HPF (0-1) H Urine Squamous Epithelial Cells MOD /HPF (0-2) Urine Bacteria None /HPF (None Seen) White Blood Count 8.7 K/uL (4.8-10.8) Red Blood Count 4.94 MIL/uL (4.00-5.50) Hemoglobin 14.2 g/dL (12.0-16.0) Hematocrit 42.7 % (36-48) Mean Corpuscular Volume 86.4 fL (79-99) Mean Corpuscular Hemoglobin 28.7 pg (27.0-33.0) Mean Corpuscular Hemoglobin Concent 33.3 g/dL (32.0-36.0) Red Cell Distribution Width 13.2 % (11.0-15.5) Platelet Count 334 K/uL (130-400) Mean Platelet Volume 9.8 fL (7.5-10.5) Immature Granulocyte % (Auto) 0.2 % (0-1) Neutrophils (%) (Auto) 51.0 % (40.0-77.0) Lymphocytes (%) (Auto) 41.5 % (21.0-51.0) Monocytes (%) (Auto) 5.3 % (3.0-13.0) Eosinophils (%) (Auto) 1.4 % (0.0-8.0) Basophils (%) (Auto) 0.6 % (0.0-5.0) Neutrophils # (Auto) 4.5 K/uL (1.8-7.7) Lymphocytes # (Auto) 3.6 K/uL (1.0-4.8) Monocytes # (Auto) 0.5 K/uL (0.1-1.0) Eosinophils # (Auto) 0.12 K/uL (0.00-0.70) Basophils # (Auto) 0.05 K/uL (0.00-0.20) Absolute Immature Granulocyte (auto 0.02 K/uL (0-1) Nucleated Red Blood Cells 0.0 % (0.0-0.19) Sodium Level 143 mmol/L (136-145) Potassium Level 3.6 mmol/L (3.5-5.1) Chloride Level 105 mmol/L (101-111) Carbon Dioxide Level 28 mmol/L (21-32) Blood Urea Nitrogen 13 mg/dL (7-18) Creatinine 0.6 mg/dL (0.5-1.0) Glomerular Filtration Rate Calc 110 mL/min (>90) Random Glucose 124 mg/dL (70-105) H Total Calcium 8.9 mg/dL (8.5-10.1) Labs Reviewed?: Yes ED Course ED Course Orders Procedure Category Date Status Time Cbc With Differential LAB 01/16/25 Complete 13:56 Urinalysis Profile LAB 01/16/25 Complete 13:56 0.9%Nacl 1000ml (Ns PHA 01/16/25 Complete 1000ml) 14:00 Ketorolac PHA 01/16/25 Complete Tromethamine 30mg/Ml 14:00 Ct Abdomen/Pelvis W/O CT 01/16/25 Resulted Contrast 13:56 Basic Metabolic Panel LAB 01/16/25 Complete 13:56 Current Medications Medications (Trade) Dose Ordered Sig/Jocelyne Route PRN Reason Start Time Stop Time Status Last Admin Dose Admin Ketorolac Tromethamine (toRADol) 30 mg ONCE ONCE IVP 01/16/25 14:00 01/16/25 14:01 DC 01/16/25 14:27 Sodium Chloride 1,000 ml @ 0 mls/hr ONCE ONCE IV 01/16/25 14:00 01/16/25 14:01 DC 01/16/25 14:27 Vital Signs Date Time Temp Pulse Resp B/P (MAP) Pulse Ox O2 Delivery O2 Flow Rate FiO2 01/16/25 13:51 96.4 104 20 174/95 99 Room Air 1540/spoke with patient at length regarding clinical findings she is aware that there was a negative CT urine does not show infection glucose is 124. Encouraged to follow up with her primary care doctor Medical Decision Making MDM MDM: Differential diagnosis: Diverticulitis/urolithiasis/ pyelonephritis/UTI/electrolyte imbalance/dehydration/abdominal strain Rationale: Tests considered and ordered secondary to shared decision making include: Labs/CT Previous outside records reviewed: Old ER visits. Risk of complication and/or morbidity or mortality of patient management: None Medications-Per medication reconciliation Need for hospitalization: Patient does not meet criteria for hospitalization. No Need for emergency major/minor surgery: No There are no social concerns with this patient. Prescription drug management pain management Prescriptions will include symptomatic care Patient's prior external medical records from other ER visits were reviewed by me as indicated. Prior testing and results from previous visits were reviewed. Prior tests were taken into account with medical decision making and resource utilization, independent historian/historians were used to obtain complete m edical history. I independently interpreted the test that were performed, results were reviewed by me and considered findings on radiology if ordered. Medical management and examination interpretation discussions were had by me with other qualified healthcare professionals as indicated for the patient's care. DX & DISP Disposition: Discharge Departure Impression: Primary Impression: Acute left lower quadrant pain Additional Impressions: Hyperglycemia, Benign hypertension Condition: Stable Scripts Ibuprofen (Ibuprofen 800 mg Tab) 800 Mg Tab 800 MG PO Q8H PRN for fever or pain, #30 TAB 0 Refills Prov: EDWARD CORADO DRESS SHOE INSPECTOR 01/16/25 Additional Instructions: Follow-up with primary care provider in 1 to 2 days. Take medications as directed here in the emergency room. Okay to continue home medications unless otherwise discussed during your visit in the emergency room today. Return to your nearest emergency room if symptoms worsen or if there is no improvement. Call 911 if you need immediate assistance. Take Tylenol or Motrin [id number] as needed and if no contraindications are present. Increase oral hydration. A wound culture or urine culture was ordered here in the emergency room department please follow-up with primary care provider and advise them to get repeat ports from our facility. If you had any Gil wrap/splints that were applied here, please do not remove them until you see your primary care or specialty. Take ibuprofen as needed for pain with food. Follow up with your primary care doctor in the next 1-2 days for recheck of your blood pressure and blood sugar. Diet and activity as tolerated otherwise Referrals: ZAFAR CHÁVEZ (PCP) Time of Disposition: 15:41 I have reviewed the case, and I agree with, Diagnosis and Plan EDWARD CORADO NP Jan 16, 2025 14:01
[2025-01-16 14:26] LABS: IMMATURE GRANULOCYTE ABSOLUTE 0.02 K/uL (0-1); NUCLEATED RED BLOOD CELLS 0.0 % (0.0-0.19); PLATELET COUNT (AUTO) 334 K/uL (130-400); RED BLOOD CELL COUNT(AUTO) 4.94 MIL/uL (4.00-5.50); RED CELL DISTRIBUTION WIDTH 13.2 % (11.0-15.5); WHITE BLOOD COUNT (AUTO) 8.7 K/uL (4.8-10.8)
[2025-01-16] MEDS: 0.9%NACL 1000ML 1,000 ML IV ONE (14:27)
[2025-01-16 14:34] LABS: CREATININE 0.6 mg/dL (0.5-1.0); GLOMERULAR FILTR. RATE CALC 110.0 mL/min (>90); GLUCOSE,RANDOM 124.0 mg/dL (70-105); SODIUM SERUM 143.0 mmol/L (136-145); UREA NITROGEN, BLOOD 13.0 mg/dL (7-18)
[2025-01-16 14:47] LABS: APPEARANCE,URINE CLEAR (CLEAR); GLUCOSE, URINE (UA) NEGATIVE (NEGATIVE); LEUKOCYTE ESTERASE ,URINE 25 Leu/uL (NEGATIVE); NITRATE,URINE NEGATIVE (NEGATIVE); OCCULT BLOOD,URINE NEGATIVE (NEGATIVE)
[2025-01-16 14:49] LABS: ADD UA MICROSCOPIC YES
[2025-01-16 14:50] LABS: SQUAMOUS EPITHELIAL CELL,UR MOD /HPF (0-2)
--- NOTE | 2025-01-16 15:32 | HMCIMG ---
EXAM: CT Abdomen and Pelvis without IV contrast CLINICAL HISTORY: ABD PAIN TECHNIQUE: Axial computed tomography images of the abdomen and pelvis without intravenous contrast. CT scan performed according to ALARA. Automated exposure control used during exam. CONTRAST: without intravenous contrast. COMPARISON: None provided. FINDINGS: Lung bases are clear. Hepatomegaly and hepatic steatosis. The gallbladder is surgically absent. Bilateral adrenal glands, kidneys, spleen, and pancreas are within normal limits. Bowel loops are normal in caliber without evidence of obstruction, ileus, or obvious bowel wall thickening. The appendix is normal. Bladder is underdistended. Pelvic organs demonstrate appropriate CT appearances. Incidental pelvic phleboliths. There is no ascites or lymphadenopathy. There is no acute or suspicious osseous abnormality. Presumed bone island within the inferior L1 vertebral body. Disc disease at L4-L5 and L5-S1. IMPRESSION: 1. No acute intraabdominal or pelvic pathology. /[place]
[2025-01-16] MEDS ORDERED: IBUP-2077 PO (15:41)
[2025-01-16 15:44] VITALS: BP 160/89; PULSE 90; RESP 18; TEMP 96.9; O2SAT 99
== END 2025-01-16 15:55 | disposition home or self-care (01) ==
LOC: EDH 13:46
DX: R10.32 Left lower quadrant pain (principal); R73.9 Hyperglycemia, unspecified; I10 Essential (primary) hypertension; Z85.3 Personal history of malignant neoplasm of breast; Z88.2 Allergy status to sulfonamides; Z90.49 Acquired absence of other specified parts of digestive tract; Z79.899 Other long term (current) drug therapy
CPT/HCPCS: 99285; 74176; 96374; 96361; 80048; 85025; 81001; 36415; J1885; J7030

== ENCOUNTER → 2025-01-23 | Outpatient (CLI) | payer OTHER ==
[~2025-01-23] MED LIST changes: +IBUP-2077 PO
--- NOTE | 2025-01-25 14:13 | HMCIMG ---
EXAMINATION: ULTRASOUND OF THE ABDOMEN WITH COLOR DOPPLER. CLINICAL HISTORY: Pain in the left flank. COMPARISON: Ultrasound of the abdomen dated 04/27/[address] of the abdomen and pelvis without contrast dated 01/16/2025. TECHNIQUE: Real-time grayscale ultrasound images of the abdomen. In addition, color Doppler is medically necessary to perform in order to evaluate vascularity and blood flow. FINDINGS: Liver: Normal in caliber, the right hepatic lobe measures 14.6 cm in the craniocaudal dimension. There is increased echogenicity of the hepatic parenchyma. There is no focal hepatic abnormality or intrahepatic biliary ductal dilatation. There is normal spectral Doppler of the main portal vein. Gallbladder: Post cholecystectomy status. Common bile duct is normal in caliber, measuring 0.51 cm. Spleen is normal in caliber and measures 10.4 x 4.1 x 3.0 cm in craniocaudal, AP, and transverse dimensions respectively. No focal lesions. Pancreas: Normal in caliber and echotexture. No calcification or dilated pancreatic duct. The kidneys are normal in caliber, the right kidney measures 11.2 x 4.2 x 4.9 cm and the left kidney measures 10.3 x 4.7 x 4.1 cm in craniocaudal, AP, and transverse dimensions respectively. There is normal renal cortical thickness, and cortical echogenicity. There is no renal calculus or hydronephrosis. Visualized aspects of the abdominal aorta and inferior vena cava are unremarkable. IMPRESSION: Hepatic steatosis. Post cholecystectomy status. /[place]
== END | disposition home or self-care (01) ==
LOC: RAH 08:07
PROVIDERS: ATTEND Nurse Practitioner Family
DX: K76.0 Fatty (change of) liver, not elsewhere classified (principal); R10.9 Unspecified abdominal pain; Z90.49 Acquired absence of other specified parts of digestive tract
CPT/HCPCS: 76700

== ENCOUNTER 2025-04-09 07:21 | Emergency (ER) | payer OTHER ==
[~2025-04-09] VITALS: Ht 162.6 cm; Wt 65.8 kg
--- NOTE | 2025-04-09 08:39 | NUR ---
PT JUST BEING PLACED IN MY HALLWAY C
--- NOTE | 2025-04-09 08:40 | NUR ---
PT WAS ABLE TO AMBULATE TO THE HALLWAY BED W/OUT A NOTICEABLE LIMP.
--- NOTE | 2025-04-09 08:51 | HMCIMG ---
EXAM: CR right ankle, 4 View. CLINICAL HISTORY: 'inu" COMPARISON: None provided. FINDINGS: BONES: No acute fracture or aggressive appearing osseous lesion. JOINTS: The joint spaces appear within normal limits. No dislocation. No radiographic evidence of a joint effusion. SOFT TISSUES: The soft tissues are unremarkable. IMPRESSION: No acute osseous abnormality. /[facility]
[2025-04-09] MEDS ORDERED: NAPR-1196 PO (09:18)
--- NOTE | 2025-04-09 09:18 | ERN ---
ED Note History of Present Illness Stated Complaint: LEFT ANKLE PAIN Chief Complaint: Ankle Problem Time Seen by MD: 07:24 Dictation: 49-year-old female with left ankle sprain patient reports getting worse pain we will for walking over the past few days and radiates up towards her calf worse to weight-bearing and over the medial aspect tender to touch Allergies: Coded Allergies: Sulfa (Sulfonamide Antibiotics) (Unverified Allergy, Unknown, 02/06/14) Home Meds Active Scripts Ibuprofen (Ibuprofen 800 mg Tab) 800 Mg Tab, 800 MG PO Q8H PRN for fever or pain, #30 TAB 0 Refills Prov:EDWARD CORADO NP 01/16/25 Cyclobenzaprine HCl (Flexeril) 10 Mg Tab, 10 MG PO q12 hours prn, #12 TAB 0 Refills Prov:NATALY VICENTE NP 01/14/25 Ketorolac Tromethamine (Toradol) 10 Mg Tab, 1 TAB PO Q6HPRN PRN for pain for 5 Days, #20 TAB 0 Refills Prov:NATALY VICENTE NP 01/14/25 Cyclobenzaprine HCl (Cyclobenzaprine HCl) 7.5 Mg Tablet, 1 TAB PO NIGHTLY\ for spasm for 7 Days, #7 TAB 0 Refills Prov:MANA LOZOYA MD 04/25/24 Naproxen (Naproxen) 250 Mg Tablet, 1 TAB PO BID for pain for 10 Days, #20 TAB 0 Refills Prov:MANA LOZOYA MD 04/25/24 [Nirmatrevir] No Conflict Check, 300 MG PO DAILY for 5 Days, #5 TAB 0 Refills Prov:NATALY VICENTE NP 01/31/24 Ritonavir (Ritonavir) 100 Mg Tablet, 100 MG PO DAILY for 5 Days, #5 TAB Prov:NATALY VICENTE NP 01/31/24 Azithromycin (Azithromycin) 250 Mg Tablet, 250 MG PO DAILY for TAKE TWO TABLETS DAY 1, #6 TAB 0 Refills Prov:NATALY VICENTE NP 01/31/24 Ondansetron (Ondansetron Odt) 4 Mg Tab.rapdis, 4 MG PO Q6HPRN PRN for nausea, #16 TAB 0 Refills Prov:ERICKA CUEVAS MD 3/17/23 Reported Medications Tamoxifen Citrate (Tamoxifen Citrate) 20 Mg Tablet, 20 MG PO HS, TAB 05/18/22 Past Medical History Past Medical History: Hypertension, Other Additional Past Medical Hx: BREAST CANCER Surgical History: Cholecystectomy, Other Surgical History Other: RT BREAST, CLEFT LIP, RHINOPLASTY Social History: Negative History: Not Applicable Review of System Dictation Constitutional: Negative for fever,chills, and weight loss Abdomen/GI: Negative for abdominal pain, nausea, vomiting, diarrhea, and constipation Back: Negative for injury and pain : Negative for injury, bleeding and discharge MS/Extremity: Per HPI Skin: Negative for rash, and discoloration Neuro: Negative for headache, weakness, numbness, tingling, and seizure Initial Vital Sign VS Vital Signs Date Time Temp Pulse Resp B/P (MAP) Pulse Ox O2 Delivery O2 Flow Rate FiO2 04/09/25 07:23 97.9 101 18 152/99 99 Room Air Physical Exam Dictation General: awake, alert, NAD Head/Face: Normocephalic, atraumatic Eyes: PERRL, EOMI, vision at baseline ENT: oral cavity clear, TMs clear, no signs of infection Neck: Trachea midline, supple, no nuchal rigidity Cardiovascular: RRR, normal S1/S2, No MRGs, no JVD Respiratory: CTAB, no respiratory distress, No rales or wheezes Abdomen: Soft, non-tender, non-distended, normal bowel sounds, no guarding or rebound. Skin: Warm, dry, normal turgor, no rash MS/Extremity: Pulses equal, no cyanosis, neurovascular intact, FROM, left ankle exam is stable mild tenderness to palpation, left upper extremity exam is stable no signs of DVT , 2+ pulses Neuro: COAx4, GCS 15, strength 5/5, CN 2-12 intact, normal cerebellar exam Results (Laboratory/Radiology) X-RAY Comment: X-ray ED Course ED Course Orders Procedure Category Date Status Time Ankle Comp 3vws Lt RAD 04/09/25 Resulted 07:45 Ketorolac PHA 04/09/25 Complete Tromethamine 15mg/Ml 08:00 Current Medications Medications (Trade) Dose Ordered Sig/Jocelyne Route PRN Reason Start Time Stop Time Status Last Admin Dose Admin Ketorolac Tromethamine (toRADol) 15 mg ONCE ONCE IM 04/09/25 08:00 04/09/25 08:02 DC 04/09/25 08:54 Vital Signs Date Time Temp Pulse Resp B/P (MAP) Pulse Ox O2 Delivery O2 Flow Rate FiO2 04/09/25 07:23 97.9 101 18 152/99 99 Room Air Medical Decision Making MDM MDM: Differential diagnosis: Rationale: Tests considered and ordered secondary to shared decision making include: Previous outside records reviewed: Old ER visits. Risk of complication and/or morbidity or mortality of patient management: None Medications-Per medication reconciliation Need for hospitalization: Patient does not meet criteria for hospitalization. Need for emergency major/minor surgery: No There are no social concerns with this patient. Prescription drug management Prescriptions will include symptomatic care Patient's prior external medical records from other ER visits were reviewed by me as indicated. Prior testing and results from previous visits were reviewed. Prior tests were taken into account with medical decision making and resource utilization, independent historian/historians were used to obtain complete medical history. I independently interpreted the test that were performed, results were reviewed by me and considered findings on radiology if ordered. Medical management and examination interpretation discussions were had by me with other qualified healthcare professionals as indicated for the patient's care. 49-year-old female with left ankle sprain stable exam negative x-ray stable for discharge. DX & DISP Disposition: Discharge Departure Impression: Primary Impression: Left ankle sprain Condition: Stable Scripts Naproxen (Naproxen) 250 Mg Tablet 250 MG PO BID for 5 Days, #10 TAB Prov: NICOLAS RUGGIERO MD 04/09/25 Referrals: ZAFAR CHÁVEZ (PCP) NICOLAS RUGGIERO MD Apr 09, 2025 09:18
[2025-04-09 09:38] VITALS: BP 139/86; PULSE 106; RESP 16; TEMP 98.4; O2SAT 100
== END 2025-04-09 09:42 | disposition home or self-care (01) ==
LOC: EDH 07:21
DX: S93.402A Sprain of unspecified ligament of left ankle, initial encounter (principal); I10 Essential (primary) hypertension; Z85.3 Personal history of malignant neoplasm of breast; Z87.730 Personal history of (corrected) cleft lip and palate; Z88.2 Allergy status to sulfonamides; Z90.49 Acquired absence of other specified parts of digestive tract; X58.XXXA Exposure to other specified factors, initial encounter; Y93.01 Activity, walking, marching and hiking; Y92.89 Other specified places as the place of occurrence of the external cause; Y99.8 Other external cause status
CPT/HCPCS: 99283; 73610; 96372; J1885